=== PATIENT | female | born 1955 | race Caucasian/White ===

== ENCOUNTER → 2017-01-21 | Outpatient (CLI) | payer MEDICARE ==
--- NOTE | 2017-01-21 11:51 | WWHP ---
DATE OF SERVICE: 01/21/2017 CHIEF COMPLAINT: The patient is here for her routine gynecologic exam and mammogram. HPI: This is a 61-year-old, G2, P2 with an LMP of 2008. The patient denies any postmenopausal bleeding. She has been treated for lichen sclerosus. She states she has done fairly well with the steroid cream. She is wondering if there has been any dropping in the vaginal area since she examines herself done there relatively frequently. She feels like the urinary area can be irritated or a little more open than in the past. She is otherwise without complaints. PAST MEDICAL HISTORY: Sarcoidosis, chronic pain syndrome, hypothyroidism, lichen sclerosus of the vulva, osteopenia, diet-controlled hypoglycemia and emphysema. MEDICATIONS: 1. Levothyroxine 15 mcg daily. 2. Metoprolol half-tablet daily. 3. Paxil 5 mg daily. 4. Trazodone 25 mg at bedtime. 5. Atarax 25 mg at bedtime. 6. Symbicort 80/40 inhaler b.i.d. ALLERGIES: She believes she may be allergic to certain antibiotics. 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 FAMILY HISTORY: Father had an MS. Mother had hypertension, paternal aunt had breast cancer. Maternal uncle had prostate cancer and a different maternal uncle had bladder cancer. REVIEW OF SYSTEMS: She has lost about 10 pounds over the last year. She has been dieting. She denies respiratory, cardiac, or GI problems. PHYSICAL EXAM: Blood pressure 115/61, height 5 feet 2 inches. Weight 162 pounds. Temperature 97.0, pulse 72. This a well-developed, well-nourished white female who is alert and oriented x3, in no acute distress. HEENT is within normal limits. NECK: Supple without mass or thyromegaly. CHEST AND LUNGS: Clear to auscultation. HEART: Regular rate and rhythm. Breasts are without mass or discharge. The left breast is minimally tender. Axillary exam is negative for adenopathy. BACK: Negative for CVA tenderness. ABDOMEN: Soft, nontender, without palpable masses. PELVIC EXAM: External genitalia reveals some pallor on a labia minora that extends slightly to the labia majora and this is consistent with lichen sclerosus. This is stable from her previous examination. There is no excoriations or ulceration. Cervix and vagina reveal mild to moderate atrophy without lesions. There is no evidence of prolapse. The cervix appears moderately atrophic without lesions. The uterus is midposition, nongravid size and nontender. There are no palpable adnexal masses or tenderness. Rectovaginal exam is negative for mass. There is slight discomfort upon doing the rectal examination. This is negative for occult blood. EXTREMITIES: Nontender. IMPRESSION: 1. A 61-year-old menopausal female with lichen sclerosis controlled with Kenalog cream. 2. Multiple medical problems. 3. Moderate genital atrophy. PLAN: 1. Pap smear was deferred, since she had a normal one last year. 2. Self breast examination was discussed. 3. Mammogram will be done today. 4. The patient would like a trial of estrogen vaginal cream since she feels that the area especially around the urethral opening can get irritated at times. She will use Premarin vaginal cream 1 gm intravaginally twice weekly and she will apply a small amount to the urethral opening area. 5. She will follow up with Dr. Alvarez for her other medical problems. 6. She will return in one year.
--- NOTE | 2017-01-23 10:45 | MM ---
Reason for exam: screening (asymptomatic). Last mammogram was performed 1 year and 1 month ago. History: Patient is postmenopausal. Family history of breast cancer in maternal aunt at age 88. Right Mammotome Panel of the right breast, August 16, 2005. Physical Findings: A clinical breast exam by your physician is recommended on an annual basis and results should be correlated with mammographic findings. MG 3D Screening Mammo W/Cad Bilateral CC and MLO view(s) were taken. Prior study comparison: December 26, 2015, bilateral MG screening mammo w CAD. August 05, 2013, bilateral digital screening mammo w/CAD. There are scattered fibroglandular densities. Finding: There is an equal density (isodense), indistinct irregular mass in the middle position of the left breast seen on CC view, present on 2015. No significant changes in finding since December 26, 2015 and August 05, 2013. ASSESSMENT: Benign, BI-RAD 2 RECOMMENDATION: Routine screening mammogram of both breasts in 1 year.
== END | disposition home or self-care (01) ==
LOC: WWCWWP 09:58
PROVIDERS: ATTEND Obstetrics & Gynecology
DX: Z12.31 Encounter for screening mammogram for malignant neoplasm of breast (principal)
CPT/HCPCS: 77063; G0202

== ENCOUNTER → 2019-01-29 | Outpatient (CLI) | payer MEDICARE ==
--- NOTE | 2019-02-01 09:30 | MM ---
Reason for exam: screening (asymptomatic). Last mammogram was performed 2 years ago. History: Patient is postmenopausal. Family history of breast cancer in maternal aunt at age 88. Right Mammotome Panel of the right breast, August 16, 2005. Physical Findings: A clinical breast exam by your physician is recommended on an annual basis and results should be correlated with mammographic findings. MG Screening Mammo w CAD Bilateral CC and MLO view(s) were taken. Prior study comparison: January 21, 2017, bilateral MG 3d screening mammo w/cad. December 26, 2015, bilateral MG screening mammo w CAD. There are scattered fibroglandular densities. There is no discrete abnormality. No significant changes when compared with prior studies. ASSESSMENT: Negative, BI-RAD 1 RECOMMENDATION: Routine screening mammogram of both breasts in 1 year.
== END | disposition home or self-care (01) ==
LOC: RADMAMWWP 13:50
PROVIDERS: ATTEND Family Medicine
DX: Z12.31 Encounter for screening mammogram for malignant neoplasm of breast (principal)
CPT/HCPCS: 77067

== ENCOUNTER → 2019-03-26 | Outpatient (CLI) | payer MEDICARE ==
--- NOTE | 2019-03-26 12:17 | NM ---
EXAMINATION TYPE: NM hepatobiliary w EF DATE OF EXAM: 03/26/2019 COMPARISON: NONE HISTORY: Right upper quadrant pain TECHNIQUE: After the intravenous administration of 4.77 mCi Tc 99m Mebrofenin hepatobiliary scintigra phy is performed. Immediate images post injection. FINDINGS: There is satisfactory initial accumulation of tracer by the liver. The gallbladder is visualized wit hin 26 minutes. The small bowel activity is noted within 14 minutes. At one hour 8 ounces of oral e nsure plus is given to mimic CCK and gallbladder ejection fraction is calculated at 86%. IMPRESSION: Elevated gallbladder ejection fraction suggest hypercontractile state.
== END | disposition home or self-care (01) ==
LOC: RADNMMAIN 08:40
PROVIDERS: ATTEND Family Medicine
DX: R10.11 Right upper quadrant pain (principal)
CPT/HCPCS: 78226; A9537

== ENCOUNTER → 2019-05-25 | Outpatient (CLI) | payer MEDICARE ==
[2019-05-25 10:04] VITALS: BP 129/75; PULSE 68; RESP 18; TEMP 98; BMI 30.2
--- NOTE | 2019-05-25 11:27 | P.PN ---
Progress Note - Text Progress Note Date: 05/25/19 Chief Complaint: worsening vulvar itching with history of lichen sclerosis. HPI: this is a 63-year-old with an LMP of 2008. The patient has a history of lichen sclerosis documented with a vulvar biopsy in 2011. She has been treated for this with steroid creams for many years. She has seen a save all operator for this. She has been using different types of creams and ointments for this. Most recently she has been using fluocinonide 0.05% cream and Pimecrolimus 1% cream as prescribed by her save all operator. She continues to have worsening of her symptoms. She has pruritus that takes your breath away. She states this is mostly a problem at night. During the days she states she can distract herself were it is not so bothersome. She once took a allergy relief medication briefly and this did seem to help. She typically has not l ooked at the vulva herself, but recently looked and noticed a white spot on the inner aspect of the labia minora on the left side. She thinks this may have been where she had a biopsy done years ago and she is wondering if it is getting bigger. She previously used to motivate which she states made her not sleep well. ROS: she denies respiratory or cardiac problems. She has had some G.I. problems including gallbladder problems. PE: Blood pressure: 129/75, Height: 5'2", Weight: hundred 65 pounds, Temperature: 88.0, Pulse: 68. Pulse oximeter 96%. This is a well developed, well nourished, white female who is alert and orientedx3, in no acute distress. External genitalia reveals moderate pallor involving the labia minora and labia majora consistent with lichen sclerosis. There is a white scarred area approximately 3 x 4 mm on the inner left to labia minora which has been seeing on previous exams and was felt to be in the area of her previous biopsy. This is nontender there is moderate atrophy. Vagina: vagina reveals mild to moderate atrophy without lesions. There is no unusual discharge. Impression: 1. 63-year-old menopausal female with lichen sclerosis and worsening pruritus especially noticed at night. 2. Possible intolerance to Temovate which previously caused difficulty sleeping according to the patient. 3. Inner left labia minora scar from previous biopsy. Differential diagnosis will also include small benign appearing inclusion cyst. Plan: 1. She will use the creams as prescribed by her save all operator. 2. We will have a trial of Premarin vaginal cream which she will use a small amount (<1gram) to the labia minora and labia majora areas every other day. 3. [id number] Benadryl 25 mg PO Q HS. We will see if this gives relief from the itching and also possibly to see if it helps her to sleep. 4. She will return in 3 or 4 weeks for reevaluation. If she is not having improvement, consider referral or retrial of team motivate ointment. Time spent with the patient: 25 minutes
== END | disposition home or self-care (01) ==
LOC: WWCWWP 09:49
PROVIDERS: ATTEND Obstetrics & Gynecology
DX: Z53.9 Procedure and treatment not carried out, unspecified reason (principal)

== ENCOUNTER → 2020-05-10 | Outpatient (CLI) | payer MEDICARE ==
[2020-05-10 11:43] VITALS: BP 137/81; PULSE 82; RESP 18; TEMP 98.9
--- NOTE | 2020-05-10 12:41 | P.HPOB ---
History of Present Illness H&P Date: 05/10/20 Chief Complaint: The patient is here for her routine gynecologic exam. This is a 64-year-old with an LMP of 2007. The patient has a history of lichen sclerosus confirmed with vulvar biopsy in 2011. The patient has used many types of creams for this including Temovate cream, fluocinonide and Premarin cream. She was last seen for this about 1 year ago because the vulvar pruritus and discomfort was so bad. None of the creams or treatments seem to work. She states that during the months between April and June it became so severe that she felt like the vulva looked like raw meat. In June she started using bacitracin ointment and Polysporin ointment and alternated these 2 things each day. She states that since then the vulvar irritation and pruritus have dramatically improved and is now having minimal problems with the vulva. She has been experiencing a slight odor in the genital region and she believes this is at the urethral opening. She denies dysuria or significant urinary urgency. She has had slight urinary frequency. Review of Systems She has gained about 3 pounds over the past year. She states she had lost about 14 pounds with dietary changes but has gained it back after she stopped being ASCUS strict with her dietary changes. She denies respiratory, cardiac and G.I. problems. She denies maltreatment or problems with falling. : she denies any significant problems with urinary leakage. Past Medical History Past Medical History: COPD, Osteoarthritis (OA), Thyroid Disorder Additional Past Medical History / Comment(s): Sarcoidosis, chronic pain syndrome, arthritis, hypothyroidism, osteoporosis, diet-controlled hypoglycemia and emphysema. 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 Lichen sclerosis of the vulva diagnosed with biopsy. Cervical cone biopsy in her 40s. History of Any Multi-Drug Resistant Organisms: None Reported Past Surgical History: Breast Surgery, Orthopedic Surgery Additional Past Surgical History / Comment(s): Laminectomy, spinal fusion surgery, breast biopsy, conization of the cervix, and colonoscopy(2012) Past Psychological History: No Psychological Hx Reported Smoking Status: Never smoker Past Alcohol Use History: None Reported Past Drug Use History: None Reported Additional History: She has been since 1972 and is disabled. - Past Family History Father Family Medical History: Myocardial Infarction ([place]) Mother Family Medical History: Hypertension Additional Family Medical History / Comment(s): Maternal uncle had bladder cancer, another maternal uncle had prostate cancer, and a maternal aunt had breast cancer. Medications and Allergies Home Medications Medication Instructions Recorded Confirmed Type Levothyroxine Sodium [Synthroid] 50 mcg PO DAILY 05/25/19 05/10/20 History Budesonide/Formoterol Fumarate 1 puff INHALATION BID 05/10/20 05/10/20 History [Symbicort 80-4.5 Mcg Inhaler] Allergies Allergy/AdvReac Type Severity Reaction Status Date / Time ciprofloxacin [From Cipro] AdvReac Nausea & Unverified 05/10/20 11:29 Vomiting Exam Vital Signs Temp Pulse Resp BP Pulse Ox 05/10/20 11:32 98.9 F 82 18 137/81 95 Intake and Output 05/09/20 05/10/20 05/10/20 22:59 06:59 14:59 Other: Weight 76.204 kg Height 5 feet 1 inch, weight 168 pounds, BMI 31.7. This is a well-developed well-nourished white female who is alert and oriented times 3 in no acute distress. HEENT: Within normal limits. NECK: Supple without mass or thyromegaly. CHEST AND LUNGS: Clear to auscultation. HEART: Regular rate and rhythm. BREASTS: Are without mass or discharge. There is left central nipple inversion which the patient has had for several years after gaining weight. AXILLARY EXAM: Negative for adenopathy. BACK: Negative for CVA tenderness. ABDOMEN: Soft, nontender, without palpable masses. PELVIC EXAM: External genitalia reveals moderate atrophic changes with pallor of the labia minora bilaterally. There is no excoriation or significant erythema.. Cervix and vagina appear normal with moderate atrophy. The cervix is stenotic secondary to atrophy. There is no unusual discharge. There is no evidence of prolapse. The uterus is midposition, nongravid size and nontender. There are no palpable adnexal masses or tenderness. RECTAL EXAM: Rectovaginal exam is negative for mass or tenderness and is negative for occult blood. EXTREMITIES: Nontender. IMPRESSION: 1. 64-year-old menopausal female with mild lichen sclerosis mostly involving the labia minora which has been symptomatically controlled using Polysporin and bacitracin ointments. The patient did not have a good clinical response with steroid creams and estrogen creams. 2. Genital odor which the patient believes originates from the urethra. Possible urinary tract infection, bacterial vaginosis, or urinary odor from foods or medications. 3. Multiple medical problems. 4. History of osteoporosis. The patient is declining treatment or testing. PLAN: 1. Pap smear was performed. 2. Self breast awareness was discussed with the patient. 3. Screening mammogram is due and the order slip was given to the patient for this. 4. UA with C&S was obtained. 5. Affirm testing was obtained from the vagina to test for Shilpa, Gardnerella and Trichomonas. 6. She does get flu shots in the fall. 7. We had a long discussion regarding weight control. I have stressed the importance of regular meals and good nutrition. We have also discussed the importance of adequate fiber and exercise. 8. The patient is declining any treatment or testing for osteoporosis since she states she will not take the medication for osteoporosis. 9. She was advised to return in one year for her annual well woman exam.
[2020-05-10 15:14] LABS: Appearance,Urine Clear (Clear); Bacteria,Urine Rare /hpf; Bilirubin,Urine Negative (Negative); Blood,Urine Trace (Negative); Color,Urine Light Yellow; Glucose,Urine (UA) Negative (Negative); Ketones,Urine Negative (Negative); Leukocyte Esterase,Urine Negative (Negative); Mucus,Urine Rare /hpf; Nitrite,Urine Negative (Negative); Protein,Urine Negative (Negative); RBC,Urine 1 /hpf (0-5); Specific Gravity,Urine 1.011 (1.001-1.035); Squamous Epithelial Cell,Urine <1 /hpf (0-4); Urobilinogen,Urine <2.0 mg/dL (<2.0); WBC,Urine 1 /hpf (0-5)
[2020-05-11 05:15] LABS: Gardnerella Negative (Negative); Source Vagina; Trichomonas Negative (Negative)
--- NOTE | 2020-05-16 11:46 | P.PN ---
Progress Note - Text Progress Note Date: 05/16/20 OUTPATIENT FOLLOW-UP NOTE TEST(S)/RESULTS: Test results from 05/10/2020 include a firm testing negative for Shilpa, Gardnerella, and Trichomonas. Urinalysis showed trace blood and urine culture was positive for Procidencia rettgeri sensitive to Bactrim. METHOD OF NOTIFICATION: The patient was notified by phone. PATIENT COMMENTS: Her main symptom has been odor at the area of the urethra. She denies dysuria, fever or flank pain. DIAGNOSIS: Low-grade cystitis UTI. DISCUSSION: PLAN: Bactrim DS twice a day 3 days. Await Pap smear test result. The electronic prescription will be sent to my her pharmacy in [place].
--- NOTE | 2020-05-23 13:55 | P.PN ---
Progress Note - Text Progress Note Date: 05/23/20 OUTPATIENT FOLLOW-UP NOTE TEST(S)/RESULTS: Pap smear from 05/10/2020 was negative. METHOD OF NOTIFICATION: The patient was notified by phone. PATIENT COMMENTS: The patient was able to complete her prescription for Bactrim DS without any problems. DIAGNOSIS: Negative Pap smear. DISCUSSION: PLAN: She was advised to return in one year for her annual well woman exam.
== END | disposition home or self-care (01) ==
LOC: WWCWWP 11:18
PROVIDERS: ATTEND Obstetrics & Gynecology
DX: N90.4 Leukoplakia of vulva (principal); L29.2 Pruritus vulvae; R82.998 Other abnormal findings in urine; R35.0 Frequency of micturition
CPT/HCPCS: 81001; 87077; 87086; 87186; 87480; 87510; 87660

== ENCOUNTER → 2021-01-02 | Outpatient (CLI) | payer MEDICARE ==
--- NOTE | 2021-01-03 09:31 | MM ---
Reason for exam: screening (asymptomatic). Last mammogram was performed 1 year and 11 months ago. History: Patient is postmenopausal. Family history of breast cancer in maternal aunt at age 88. Right Mammotome Panel of the right breast, August 16, 2005. Physical Findings: A clinical breast exam by your physician is recommended on an annual basis and results should be correlated with mammographic findings. MG 3D Screening Mammo W/Cad Bilateral CC and MLO view(s) were taken. Prior study comparison: January 29, 2019, bilateral MG screening mammo w CAD. January 21, 2017, bilateral MG 3d screening mammo w/cad. There are scattered fibroglandular densities. There is no discrete abnormality. No significant changes when compared with prior studies. ASSESSMENT: Negative, BI-RAD 1 RECOMMENDATION: Routine screening mammogram of both breasts in 1 year.
== END | disposition home or self-care (01) ==
LOC: RADMAMWWP 11:18
PROVIDERS: ATTEND Obstetrics & Gynecology
DX: Z12.31 Encounter for screening mammogram for malignant neoplasm of breast (principal); Z78.0 Asymptomatic menopausal state
CPT/HCPCS: 77063; 77067

== ENCOUNTER 2021-03-18 13:59 | Observation (INO) | payer MEDICARE ==
[2021-03-18 14:37] LABS: Basophils # (A) 0.1 k/uL (0-0.2); Basophils % (A) 1 %; Eosinophils # (A) 0.1 k/uL (0-0.7); Eosinophils % (A) 1 %; HCT 42.8 % (34.0-46.0); Lymphocytes # (A) 1.2 k/uL (1.0-4.8); Lymphocytes % (A) 11 %; MCH 31.5 pg (25.0-35.0); MCV 90.1 fL (80.0-100.0); Mean Platelet Volume 7.4; Monocytes # (A) 0.4 k/uL (0-1.0); Monocytes % (A) 4 %; Neutrophils # (A) 8.7 k/uL (1.3-7.7); Neutrophils % (A) 83 %; Platelet Count 245 k/uL (150-450); RBC 4.75 m/uL (3.80-5.40); WBC 10.4 k/uL (3.8-10.6)
[2021-03-18 14:45] LABS: Partial Thromboplastin Time 23.5 sec (22.0-30.0); Prothrombin Time 10.3 sec (9.0-12.0)
[2021-03-18 14:46] LABS: Albumin 4.8 g/dL (3.5-5.0); Calcium 10.3 mg/dL (8.4-10.2); Magnesium 1.9 mg/dL (1.6-2.3); Potassium 4.3 mmol/L (3.5-5.1); Total Bilirubin 0.4 mg/dL (0.2-1.3); Total Protein 7.6 g/dL (6.3-8.2)
--- NOTE | 2021-03-18 14:50 | ED ---
Chest Pain HPI - General Chief Complaint: Chest Pain Stated Complaint: SOB, Chest discomfort Time Seen by Provider: 03/18/21 14:07 Source: patient, RN notes reviewed Mode of arrival: wheelchair Limitations: no limitations - History of Present Illness Initial Comments: This is a 65-year-old female with a history of hiatal hernia and thyroid disease sarcoidosis arthritis who presents with complaints of fatigue and exertional fatigue and dyspnea. She states is been going on for about 6 weeks does states she had a cold with 19 shot with the last one being in January 25. He states she's been having some fatigue going on for this time but over last 2 weeks is gotten worse with fatigue and some anterior chest discomfort. He discomfort is sometimes up to moderate in severity. She also has weakness and shortness of breath with it. No known overt cardiac disease. No cough no phlegm production fevers chills nausea vomiting sweats at this time. MD Complaint: chest pain - Related Data Home Medications Medication Instructions Recorded Confirmed Levothyroxine Sodium [Synthroid] 50 mcg PO DAILY 05/25/19 05/10/20 Budesonide/Formoterol Fumarate 1 puff INHALATION RT-BID 05/10/20 05/10/20 [Symbicort 80-4.5 Mcg Inhaler] Allergies Allergy/AdvReac Type Severity Reaction Status Date / Time ciprofloxacin [From Cipro] AdvReac Nausea & Verified 03/18/21 16:02 Vomiting Review of Systems ROS Statement: Those systems with pertinent positive or pertinent negative responses have been documented in the HPI. ROS Other: All systems not noted in ROS Statement are negative. EKG Findings - EKG Results: EKG: interpreted by EDITH, sinus rhythm (Sinus rhythm a 71 HI interval 164 QRS 82 QT since QTC 388/421 low-voltage no acute ST-T wave changes) Past Medical History Past Medical History: COPD, Osteoarthritis (OA), Thyroid Disorder Additional Past Medical History / Comment(s): Sarcoidosis, chronic pain syndrome, arthritis, hypothyroidism, osteoporosis, diet-controlled hypoglycemia and emphysema. 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 Lichen sclerosis of the vulva diagnosed with biopsy. Cervical cone biopsy in her 40s. History of Any Multi-Drug Resistant Organisms: None Reported Past Surgical History: Breast Surgery, Orthopedic Surgery Additional Past Surgical History / Comment(s): Laminectomy, spinal fusion surgery, breast biopsy, conization of the cervix, and colonoscopy(2012) Past Psychological History: No Psychological Hx Reported Smoking Status: Never smoker Past Alcohol Use History: None Reported Past Drug Use History: None Reported - Past Family History Father Family Medical History: Myocardial Infarction ([place]) Mother Family Medical History: Hypertension Additional Family Medical History / Comment(s): Maternal uncle had bladder cancer, another maternal uncle had prostate cancer, and a maternal aunt had breast cancer. General Exam - General Exam Comments Initial Comments: This is a well-developed well-nourished awake alert oriented 3 female Limitations: no limitations General appearance: alert, in no apparent distress Head exam: Present: atraumatic, normocephalic, normal inspection Eye exam: Present: normal appearance, PERRL, EOMI. Absent: scleral icterus, conjunctival injection, periorbital swelling ENT exam: Present: normal exam, mucous membranes moist Neck exam: Present: normal inspection, full ROM, other (No stridor JVD or bruits). Absent: tenderness, meningismus, lymphadenopathy Respiratory exam: Present: normal lung sounds bilaterally, chest wall tenderness (Some mild tenderness to palpation no step-off or crepitation). Absent: respiratory distress, wheezes, rales, rhonchi, stridor Cardiovascular Exam: Present: regular rate, normal rhythm, normal heart sounds. Absent: systolic murmur, diastolic murmur, rubs, gallop, clicks GI/Abdominal exam: Present: soft, normal bowel sounds. Absent: distended, tenderness, guarding, rebound, rigid Extremities exam: Present: normal inspection, full ROM, normal capillary refill. Absent: tenderness, pedal edema, joint swelling, calf tenderness Back exam: Present: normal inspection Neurological exam: Present: alert, oriented X3, CN II-XII intact Psychiatric exam: Present: normal affect, normal mood Skin exam: Present: warm, dry, intact, normal color. Absent: rash Course Vital Signs 03/18/21 03/18/21 14:01 14:41 Temperature 98.3 F Pulse Rate 82 71 Respiratory 16 18 Rate Blood Pressure 179/81 161/84 O2 Sat by Pulse 95 96 Oximetry Chest Pain MDM - MDM I did discuss the findings with the patient. Remarkable patient is asymptomatic at this time the patient does have evidence on symptoms of angina patient will be admitted with cardiology consultation the case is discussed with Dr. Constantino who is covering Dr. Alvarez Disposition Clinical Impression: Atypical chest pain, Unstable angina pectoris Disposition: ADMITTED IP TO THIS HOSP Condition: Stable Referrals: Naima Alvarez DO [REFERRING] - 1-2 days
--- NOTE | 2021-03-18 15:08 | XR ---
EXAMINATION TYPE: XR chest 2V DATE OF EXAM: 03/18/2021 COMPARISON: NONE HISTORY: Shortness of breath. TECHNIQUE: Frontal and lateral views of the chest are obtained. FINDINGS: There is no focal air space opacity, pleural effusion, or pneumothorax seen. The cardiac silhouette size is within normal limits. The osseous structures are intact. IMPRESSION: No acute cardiopulmonary process.
[2021-03-18] MEDS ORDERED: NITROGLYCERIN SL TABS 0.4 MG TAB SUBLINGUAL PRN (16:12)
[2021-03-18] MEDS ORDERED: traZODone HCL 50 MG TAB PO PRN (16:17)
[2021-03-18] MEDS ORDERED: ALBUTEROL NEBULIZED 2.5 MG/3 ML INHALATION PRN ×2 (16:17)
[2021-03-18] MEDS ORDERED: guaiFENesin 600 MG TABLET.ER PO PRN (16:17)
[2021-03-18] MEDS ORDERED: predniSONE 10 MG TAB PO PRN (16:17)
[2021-03-18] MEDS ORDERED: hydrOXYzine HCL 25 MG TAB PO PRN (16:17)
[2021-03-18] MEDS ORDERED: diphenhydrAMINE 25 MG CAP PO PRN (16:17)
[2021-03-18] MEDS ORDERED: tiZANidine 4 MG TAB PO PRN (16:17)
[2021-03-18] MEDS: SODIUM CHLORIDE 0.9% 1,000 ML IV SCH (17:48)
[2021-03-18] MEDS: SYMBICORT 80-4.5 MCG INHALER INHALATION SCH (20:23)
--- NOTE | 2021-03-18 21:59 | HP ---
HISTORY AND PHYSICAL DATE OF SERVICE: 03/18/2021. I am covering for Dr. Alvarez. CHIEF COMPLAINT: Multiple symptomatology including weakness, tiredness and also some shortness of breath and chest discomfort. HISTORY OF PRESENT ILLNESS: This 65-year-old woman with a past medical history of multiple medical issues, COPD, DJD, hypothyroidism, history of sarcoidosis, being followed by Dr. Alvarez in the outpatient setting, was not feeling well over the past several weeks. The patient complaining of tiredness and weak. Patient completed the 2nd course of Pfizer vaccine about a few weeks ago. The patient also complaining of some increasing fatigue for the last 6 weeks and some panting type of feeling also. The patient evaluated in the outpatient setting by Dr. Alvarez and adrenal insufficiency being checked into that but because of increased symptoms, patient came to [facility] and was admitted to the hospital for further evaluation and treatment. CBC was within normal limits. Otherwise, calcium is 10.3. D-dimer was negative. Troponins also negative at this time. The EKG which was done showed non-progression of the R-waves in the anterior leads. The chest x-ray which was reviewed personally by me showed no acute abnormality. There is no history of fever, rigors, chills at this time. The Covid test was negative. PAST MEDICAL HISTORY: History of COPD, history of DJD, hypothyroidism, history of sarcoidosis, chronic pain syndrome, history of DJD. MEDICATIONS: Home medications are trazodone, Zanaflex, prednisone, Atarax, Mucinex, Benadryl, Paxil, Toprol-XL. Synthroid, vitamin B12, Symbicort, albuterol nebulizer. ALLERGIES: CIPRO. FAMILY HISTORY: History of myocardial infarction in the family. SOCIAL HISTORY: No history of smoking. No history of alcohol. REVIEW OF SYSTEMS: ENT: No diminished vision. No diminished hearing. CARDIOVASCULAR system: As mentioned earlier. RESPIRATORY: As mentioned earlier. GI no nausea or vomiting. no dysuria. NERVOUS SYSTEM: As mentioned earlier. ALLERGY/IMMUNOLOGY: No asthma or hayfever. MUSCULOSKELETAL as mentioned earlier. HEMATOLOGY/ONCOLOGY: No history of anemia. ENDOCRINE: As mentioned earlier. CONSTITUTIONAL: As mentioned earlier. DERMATOLOGY: Negative. RHEUMATOLOGY negative. PSYCHIATRY as mentioned earlier. PHYSICAL EXAM: Patient is alert, oriented x3. Pulse 71. Blood pressure 128/74. Respirations 18, temperature 98.4, pulse ox 98% on room air. HEENT: Conjunctivae normal. Oral mucosa moist. NECK is no jugular venous distention. No carotid bruit. No lymph node enlargement. CARDIOVASCULAR system: S1, S2, muffled. RESPIRATIONS: Breath sounds diminished in the bases. No rhonchi. No crackles. ABDOMEN: Soft, nontender. No mass palpable. LEGS: No edema. No swelling. NERVOUS SYSTEM: Higher functions as mentioned earlier. Moves all 4 limbs. No focal deficits. LYMPHATICS: No lymph nodes palpable in the neck, axillae or groin. SKIN no ulcer, rash or bleeding. JOINTS: No active deforming arthropathy. LABS: This time CBC within normal limits. D-dimer is normal. Sodium 139, potassium 4.3, calcium is 10.3. ASSESSMENT: 1. Chest discomfort for evaluation, rule out coronary artery disease. 2. Generalized weakness and fatigue for evaluation, rule out adrenal insufficiency. 3. Hypercalcemia. 4. Increased random glucose. 5. History of chronic obstructive pulmonary disease. 6. History of degenerative joint disease. 7. Hypothyroidism. 8. History of sarcoidosis. 9. History of chronic pain syndrome. 10.History of degenerative joint disease. 11.History of osteoporosis. 12.Diet-controlled hyperglycemia. 13.History of emphysema. 14.History of lichen sclerosis. 15.History of laminectomy. RECOMMENDATIONS AND DISCUSSION: This 65-year-old woman who presented with multiple medical issues, we will monitor the patient closely, continue the current medications, management and symptomatic treatment. Otherwise cardiology consultation. I would also recommend an 8:00 am serum cortisol and a CRP level. I would recommend a CT angio of the chest and monitor blood pressure closely. Prognosis guarded because of multiple complex medical issues. A copy of this dictation is being forwarded to Dr. Kael Alvarez who is the primary physician. MMODL / IJN: [id number] /
[2021-03-19 02:37] VITALS: RESP 16
[2021-03-19] MEDS ORDERED: methylPREDNISolone SOD SUCCI 125 MG/2 ML VIAL IV ONE (05:00)
[2021-03-19] MEDS ORDERED: LEVOTHYROXINE 50 MCG TAB PO SCH (06:30)
[2021-03-19 07:01] VITALS: BP 100/62; PULSE 60; TEMP 98.3
[2021-03-19] MEDS: SYMBICORT 80-4.5 MCG INHALER INHALATION SCH (08:00)
--- NOTE | 2021-03-19 08:44 | P.CRDCN ---
History of Present Illness History of present illness: HISTORY OF PRESENTING ILLNESS This is a pleasant 65-year-old with past medical history significant for COPD, pulmonary sarcoidosis, hypothyroidism, strong family history of coronary artery disease. She presents to the hospital secondary to episodes of increased pressure mainly with exertion or last 3-4 days. She states she got her Pfizer vaccinations 6-8 weeks ago and has been feeling some fatigue. Fatigue mainly is feeling like she does not want to get up and do things and more tired throughout the day. More recently however in the last 3-4 days she has noticed increased episodes of chest tightness, pressure, feeling like there is not enough room which usually occurs with exertion. No associated nausea, diaphoresis or shortness breath. She believes she has had a stress test approximately 10 years ago. She does have a strong family history of father with coronary artery disease, as well as some concern of possible aneurysm. Chest x-ray performed 03/18/2021 shows no acute process. He shows normal sinus rhythm, low voltage, normal axis, no significant ST or T-wave abnormalities. Calcium 10.3, BUN 20, creatinine 0.8, troponin negative 3, lopez virus not detected. REVIEW OF SYSTEMS At the time of my exam: CONSTITUTIONAL: Denies fever or chills. CARDIOVASCULAR: +chest pain, no shortness of breath, orthopnea, PND or palpitations. RESPIRATORY: Denies cough. GASTROINTESTINAL: Denies abdominal pain, diarrhea, constipation, nausea or vomiting. MUSCULOSKELETAL: Denies myalgias. NEUROLOGIC: Denies numbness, tingling or weakness. ENDOCRINE: Denies fatigue, weight change, polydipsia or polyurina. GENITOURINARY: Denies burning, hematuria or urgency with micturation. HEMATOLOGIC: Denies history of anemia or bleeding. PHYSICAL EXAMINATION Vital signs reviewed. CONSTITUTIONAL: No apparent distress. HEENT: Head is normocephalic. Pupils are equal, round. Sclerae anicteric. Mucous membranes of the mouth are moist. No JVD. No carotid bruit. CHEST EXAMINATION: Lungs are clear to auscultation. No chest wall tenderness is noted on palpation or with deep breathing. HEART EXAMINATION: Regular rate and rhythm. S1, S2 heard. No murmurs, gallops or rub. ABDOMEN: Soft, nontender. Positive bowel sounds. EXTREMITIES: 2+ peripheral pulses, no lower extremity edema and no calf tenderness. NEUROLOGIC EXAMINATION: Patient is awake, alert and oriented x3. ASSESSMENT 1. Atypical chest pain however some association with exertion. Rule out angina. Check echocardiogram and stress echo. Troponins normal 3. 2. History of pulmonary sarcoidosis 3. New-onset of fatigue for last 6-8 weeks. Patient being worked up for possible adrenal insufficiency versus depression versus reaction to COVID-19 vaccination 4. Hypertension 5. Family history of coronary artery disease, aneurysm PLAN Symptoms are not typical however some association with exertion. Some vague feeling of pressure, tightness and feeling like there is a fullness in her chest which is worse with exertion. Troponins normal 3 and EKG unrevealing. Check a echocardiogram and stress echo. If both are normal, patient may be discharged home with cardiology standpoint. Past Medical History Past Medical History: COPD, Osteoarthritis (OA), Thyroid Disorder Additional Past Medical History / Comment(s): Sarcoidosis, chronic pain syndrome, arthritis, hypothyroidism, osteoporosis, diet-controlled hypoglycemia and emphysema. PAST DONOR FLOOR TECHNICIAN HISTORY: She has no history of STDs. Lichen sclerosis of the vulva diagnosed with biopsy. Cervical cone biopsy in her 40s. History of Any Multi-Drug Resistant Organisms: None Reported Past Surgical History: Breast Surgery, Orthopedic Surgery Additional Past Surgical History / Comment(s): Laminectomy, spinal fusion doan rgery, breast biopsy, conization of the cervix, and colonoscopy(2012) Past Anesthesia/Blood Transfusion Reactions: No Reported Reaction Past Psychological History: No Psychological Hx Reported Smoking Status: Never smoker Past Alcohol Use History: None Reported Past Drug Use History: None Reported - Past Family History Father Family Medical History: Myocardial Infarction ([place]) Mother Family Medical History: Hypertension Additional Family Medical History / Comment(s): Maternal uncle had bladder cancer, another maternal uncle had prostate cancer, and a maternal aunt had breast cancer. Medications and Allergies Home Medications Medication Instructions Recorded Confirmed Type Levothyroxine Sodium [Synthroid] 50 mcg PO DAILY 05/25/19 03/18/21 History Budesonide/Formoterol Fumarate 1 puff INHALATION RT-BID 05/10/20 03/18/21 History [Symbicort 80-4.5 Mcg Inhaler] Albuterol Nebulized [Ventolin 2.5 mg INHALATION RT-BID PRN 03/18/21 03/18/21 History Nebulized] Albuterol Sulfate [Proair Hfa] 1 puff INHALATION RT-Q4H PRN 03/18/21 03/18/21 History Cyanocobalamin [Vitamin B-12 1,000 mcg SQ Q14D 03/18/21 03/18/21 History Injection] Metoprolol Succinate [Toprol XL] 12.5 mg PO DAILY 03/18/21 03/18/21 History PARoxetine [Paxil] 5 mg PO DAILY 03/18/21 03/18/21 History diphenhydrAMINE [Benadryl] 25 mg PO DAILY PRN 03/18/21 03/18/21 History guaiFENesin [Mucinex] 600 mg PO BID PRN 03/18/21 03/18/21 History hydrOXYzine HCL [Atarax] 25 mg PO Q8H PRN 03/18/21 03/18/21 History predniSONE 10 mg PO DAILY PRN 03/18/21 03/18/21 History tiZANidine HCL [Zanaflex] 4 mg PO BID PRN 03/18/21 03/18/21 History traZODone HCL 50 mg PO HS PRN 03/18/21 03/18/21 History Allergies Allergy/AdvReac Type Severity Reaction Status Date / Time ciprofloxacin [From Cipro] AdvReac Nausea & Verified 03/18/21 16:02 Vomiting Physical Exam Vitals: Vital Signs Temp Pulse Pulse Resp BP BP Pulse Ox 03/19/21 07:00 98.3 F 60 16 100/62 93 L 03/19/21 02:00 98.0 F 66 16 98/54 93 L 03/18/21 20:00 98.1 F 67 18 122/72 95 03/18/21 18:12 71 18 03/18/21 17:26 98.4 F 71 18 128/74 96 03/18/21 16:09 64 18 136/72 95 03/18/21 14:41 71 18 161/84 96 03/18/21 14:01 98.3 F 82 16 179/81 95 Intake and Output 03/18/21 03/19/21 03/19/21 22:59 06:59 14:59 Other: Voiding Method Toilet # Voids 2 2 Weight 72.575 kg Results 03/18/21 14:29 03/18/21 14:29 Cardiac Enzymes 03/18/21 03/18/21 03/18/21 Range/Units 14:29 14:29 17:19 AST 29 (14-36) U/L Troponin I <0.012 <0.012 (0.000-0.034) ng/mL 03/18/21 Range/Units 22:40 AST (14-36) U/L Troponin I <0.012 (0.000-0.034) ng/mL Coagulation 03/18/21 Range/Units 14:29 PT 10.3 (9.0-12.0) sec APTT 23.5 (22.0-30.0) sec CBC 03/18/21 Range/Units 14:29 WBC 10.4 (3.8-10.6) k/uL RBC 4.75 (3.80-5.40) m/uL Hgb 15.0 (11.4-16.0) gm/dL Hct 42.8 (34.0-46.0) % Plt Count 245 (150-450) k/uL Comprehensive Metabolic Panel 03/18/21 Range/Units 14:29 Sodium 139 (137-145) mmol/L Potassium 4.3 (3.5-5.1) mmol/L Chloride 105 (98-107) mmol/L Carbon Dioxide 24 (22-30) mmol/L BUN 20 H (7-17) mg/dL Creatinine 0.83 (0.52-1.04) mg/dL Glucose 118 H (74-99) mg/dL Calcium 10.3 H (8.4-10.2) mg/dL AST 29 (14-36) U/L ALT 26 (4-34) U/L Alkaline Phosphatase 79 (38-126) U/L Total Protein 7.6 (6.3-8.2) g/dL Albumin 4.8 (3.5-5.0) g/dL Current Medications Generic Name Dose Route Start Last Admin Trade Name Freq PRN Reason Stop Dose Admin Albuterol Sulfate 2.5 mg 03/18/21 16:17 Albuterol Nebulized 2.5 Mg/3 Ml INHALATION RT-Q4H PRN Shortness Of Breath Aspirin 325 mg 03/19/21 09:00 03/19/21 08:00 Aspirin 325 Mg Tab PO 325 mg DAILY EMILY Administration Budesonide/Formoterol Fumarate 1 puff 03/18/21 20:00 03/19/21 08:00 Symbicort 80-4.5 Mcg Inhaler INHALATION 1 puff RT-BID EMILY Administration Cyanocobalamin 1,000 mcg 03/26/21 09:00 Cyanocobalamin 1,000 Mcg/Ml 1 Ml Vial SQ Q14D EMILY Diphenhydramine HCl 25 mg 03/18/21 16:17 Diphenhydramine 25 Mg Cap PO DAILY PRN Allergy Symptoms Diphenhydramine HCl 50 mg 03/19/21 10:30 Diphenhydramine 50 Mg/Ml 1 Ml Vial IVP 03/19/21 10:31 ONCE ONE Famotidine 20 mg 03/19/21 10:30 Famotidine 20 Mg/2 Ml Vial IV 03/19/21 10:31 ONCE ONE Guaifenesin 600 mg 03/18/21 16:17 Guaifenesin 600 Mg Tablet.Er PO BID PRN Congestion Hydroxyzine HCl 25 mg 03/18/21 16:17 03/18/21 23:10 Hydroxyzine Hcl 25 Mg Tab PO 25 mg Q8H PRN Administration Itching Sodium Chloride 1,000 mls @ 20 mls/hr 03/18/21 16:15 03/18/21 17:48 Saline 0.9% IV Not Given .Q24H EMILY Levothyroxine Sodium 50 mcg 03/19/21 06:30 03/19/21 05:11 Levothyroxine 50 Mcg Tab PO 50 mcg DAILY@0630 EMILY Administration Metoprolol Succinate 12.5 mg 03/19/21 09:00 03/19/21 08:00 Metoprolol Succinate (Er) 25 Mg Tab.Er.24h PO 12.5 mg DAILY EMILY Administration Nitroglycerin 0.4 mg 03/18/21 16:12 Nitroglycerin Sl Tabs 0.4 Mg Tab SUBLINGUAL Q5M PRN Chest Pain Paroxetine HCl 5 mg 03/19/21 09:00 03/19/21 08:00 Paroxetine 10 Mg Tab PO 5 mg DAILY EMILY Administration Prednisone 10 mg 03/18/21 16:17 Prednisone 10 Mg Tab PO DAILY PRN ASTHMA Tizanidine HCl 4 mg 03/18/21 16:17 03/18/21 23:10 Tizanidine 4 Mg Tab PO 2 mg BID PRN Administration Muscle Spasm Trazodone HCl 50 mg 03/18/21 16:17 03/18/21 22:22 Trazodone Hcl 50 Mg Tab PO 50 mg HS PRN Administration Insomnia Intake and Output 03/18/21 03/19/21 03/19/21 22:59 06:59 14:59 Other: Voiding Method Toilet # Voids 2 2 Weight 72.575 kg 03/18/21 14:29 03/18/21 14:29
[2021-03-19] MEDS ORDERED: METOPROLOL SUCCINATE (ER) 25 MG TAB.ER.24H PO SCH (09:00)
[2021-03-19] MEDS ORDERED: PARoxetine 10 MG TAB PO SCH (09:00)
[2021-03-19] MEDS ORDERED: ASPIRIN 325 MG TAB PO SCH (09:00)
[2021-03-19 09:28] LABS: Basophils # (A) 0.07 X 10*3/uL (0.00-0.10); Eosinophils # (A) 0.11 X 10*3/uL (0.04-0.35); Eosinophils % (A) 1.6 %; HCT 40.4 % (37.2-46.3); HGB 13.7 g/dL (12.0-15.0); Lymphocytes # (A) 2.55 X 10*3/uL (0.90-5.00); Lymphocytes % (A) 37.5 %; MCH 31.4 pg (27.0-32.0); MCHC 33.9 g/dL (32.0-37.0); MCV 92.4 fL (80.0-97.0); Mean Platelet Volume 10.4 fL (9.5-12.2); Monocytes # (A) 0.63 X 10*3/uL (0.20-1.00); Monocytes % (A) 9.3 %; Neutrophils # (A) 3.43 X 10*3/uL (1.80-7.70); Neutrophils % (A) 50.5 %; Platelet Count 239 X 10*3/uL (140-440); RBC 4.37 X 10*6/uL (4.10-5.20); RDW 12.2 % (11.5-14.5)
[2021-03-19] MEDS ORDERED: diphenhydrAMINE 50 MG/ML 1 ML VIAL IVP ONE (10:30)
[2021-03-19] MEDS ORDERED: FAMOTIDINE 20 MG/2 ML VIAL IV ONE (10:30)
[2021-03-19 11:42] LABS: BUN/Creat Ratio 23.75 Ratio (12.00-20.00); C Reactive Protein <0.4 mg/dL (0.0-0.8); Calcium 9.4 mg/dL (8.7-10.3); Carbon Dioxide 29.8 mmol/L (21.6-31.8); Chloride 105 mmol/L (96-109); Cholesterol 260 mg/dL (0-200); Glucose 90 mg/dL (70-110); LDL Cholesterol,Calculated 179.2 mg/dL (0.0-131.0); Non-African American GFR(CKD) 76.8 (60.0-200.0); Potassium 4.1 mmol/L (3.5-5.5); Sodium 139 mmol/L (135-145)
[2021-03-19] MEDS: SODIUM CHLORIDE 0.9% 1,000 ML IV SCH (12:01)
--- NOTE | 2021-03-19 12:36 | P.STRESS ---
- Stress Test Note Stress Test Results/Findings: Exam Performed: Exam Date: Reason for Exam: Height: 5 ft 1 in Weight: 72.575 kg Protocol: Stage: Duration of Exercise: Resting Heart Rate: Resting Blood Pressure: Maximum Achieved Heart Rate: Maximum Achieved Blood Pressure: 85% PMHR: 100% PMHR: METS: Technologist Comment: Stress Test Results/Findings: Patient underwent exercise stress echo with a Kem protocol treadmill stress test. Patient exercised into Stage 1 for a total of 3 minutes. Patient's maximum heart rate was 143 which represented 93% age-predicted maximum heart rate. Stress EKG portion: At baseline patient's EKG showed Normal sinus rhythm, normal axis, minimal went to [address] depressions in the inferior lateral leads, minimal ST elevation in aVR. With stress there was mild accentuation of baseline EKG abnormalities with up to 0.[address] depressions in the inferior lateral leads. Stress echo portion: 2-D echocardiogram was performed in the parasternal long, personal short, apical 2 and apical four-chamber views at rest, peak exercise and in recovery. At baseline, echocardiogram showed left ventricular ejection fraction 55% without wall motion abnormalities. With peak exercise, echocardiogram shows improvement in left ventricular ejection fraction, increase contractility, decrease in left ventricular dimension without wall motion abnormalities consistent with a normal response to exercise. Conclusions: 1. Normal EKG and echo response to exercise without evidence of inducible ischemia. 2. Poor exercise capacity. 3. Normal EF 55%.
--- NOTE | 2021-03-19 13:00 | ECHOF ---
Referral Reason:chf MEASUREMENTS -------- HEIGHT: 154.9 cm WEIGHT: 72.6 kg BP: RVIDd: 2.8 cm (< 3.3) IVSd: 0.9 cm (0.6 - 1.1) LVIDd: 3.9 cm (3.9 - 5.3) LVPWd: 0.8 cm (0.6 - 1.1) IVSs: 1.4 cm LVIDs: 2.7 cm LVPWs: 1.6 cm Ao Diam: 3.4 cm (2.0 - 3.7) AV Cusp: 2.1 cm (1.5 - 2.6) LA Diam: 2.8 cm (2.7 - 3.8) MV EXCURSION: 7.289 mm (> 18.000) MV EF SLOPE: 56 mm/s (70 - 150) EPSS: 0.9 cm MV E Danny: 1.06 m/s MV DecT: 181 ms MV A Danny: 0.95 m/s MV E/A Ratio: 1.11 RAP: 5.00 mmHg RVSP: 8.95 mmHg FINDINGS -------- This was a technically difficult study with suboptimal views. The left ventricular size is normal. Left ventricular wall thickness is normal. Overall left vent ricular systolic function is normal with, an EF between 55 - 60 %. The right ventricle is normal in size. The left atrial size is normal. The right atrial size is normal. xx ml of Lumason was utilized for enhancement of images. The aortic valve is trileaflet and appears structurally normal. The mitral valve was not well visualized. There is trace mitral regurgitation. The tricuspid valve was not well visualized. Trace tricuspid regurgitation present. Right ventric ular systolic pressure is normal at < 35 mmHg. The pulmonic valve was not well visualized. The aortic root size is normal. IVC Not well visulized. There is no pericardial effusion. CONCLUSIONS -------- 1. The left ventricular size is normal. 2. Left ventricular wall thickness is normal. 3. Overall left ventricular systolic function is normal with, an EF between 55 - 60 %. 4. There is trace mitral regurgitation. 5. Trace tricuspid regurgitation present. 6. There is no pericardial effusion. VIRTUAL RECRUITER: Christi Hart RDCS
--- NOTE | 2021-03-19 13:21 | CT ---
EXAMINATION TYPE: CT angio chest DATE OF EXAM: 03/19/2021 COMPARISON: Chest x-ray 03/18/2021 HISTORY: Chest pain. History of sarcoid. CT DLP: 511 mGycm Automated exposure control for dose reduction was used. CONTRAST: CTA scan of the thorax is performed with IV Contrast, patient injected with 75ml mL of Isovue 370, pu lmonary embolism protocol. MIP images are created and reviewed. 3D reconstructed images are created on an independent workstation and reviewed. FINDINGS: LUNGS: The lungs are showing a bandlike area of probable atelectasis or scarring at the right lung ba se, there is no concerning parenchymal mass or nodule identified, nodular density along the fissure, axial image 73 is likely of no consequence, benign with smooth margins measuring approximately 6 mm. There is no pleural effusion or pneumothorax seen. The tracheobronchial tree is patent. There is s ome apical pleural thickening. Focus of cylindrical bronchiectasis present in the left upper lobe, so me local scarring is suspected, axial images #66 through 750, some calcified granuloma suspected in t he left upper lobe at this level. AORTA: No additional significant abnormality is seen. MEDIASTINUM: There is satisfactory enhancement of the pulmonary artery and its branches, there is no CT evidence for pulmonary embolism. There are no greater than 1 cm hilar or mediastinal lymph nodes. No pericardial effusion is seen. OTHER: Low dense foci within the liver likely represent cysts. Calyceal diverticulum suspected at th e upper pole the left kidney containing calcifications measuring approximately 2.7 cm in greatest AP dimension. IMPRESSION: NO EVIDENT PULMONARY EMBOLISM. ADDITIONAL FINDINGS ABOVE.
[2021-03-26] MEDS ORDERED: CYANOCOBALAMIN 1,000 MCG/ML 1 ML VIAL SQ SCH (09:00)
== END 2021-03-19 13:50 | disposition home or self-care (01) ==
LOC: EC 13:59 → 6NMEDSUR 16:12
PROVIDERS: ADMIT Family Medicine; ATTEND Family Medicine
DX: R07.89 Other chest pain (principal); R53.1 Weakness; E83.52 Hypercalcemia; J43.9 Emphysema, unspecified; Z20.822 Contact with and (suspected) exposure to COVID-19; M19.90 Unspecified osteoarthritis, unspecified site; M81.0 Age-related osteoporosis without current pathological fracture; E03.9 Hypothyroidism, unspecified; D86.9 Sarcoidosis, unspecified; G89.4 Chronic pain syndrome; L28.0 Lichen simplex chronicus; K44.9 Diaphragmatic hernia without obstruction or gangrene; D86.0 Sarcoidosis of lung; I10 Essential (primary) hypertension; Z79.51 Long term (current) use of inhaled steroids; Z79.890 Hormone replacement therapy; Z79.899 Other long term (current) drug therapy; Z88.1 Allergy status to other antibiotic agents; Z98.1 Arthrodesis status; Z98.890 Other specified postprocedural states; Z82.49 Family history of ischemic heart disease and other diseases of the circulatory system; Z80.52 Family history of malignant neoplasm of bladder; Z80.3 Family history of malignant neoplasm of breast
CPT/HCPCS: 96375; 96374; 99285; 36415; 94640 ×2; 93005; 85379; 80061; 80053; 80048; 82533; 83690; 83735; 84484; 85025 ×2; 85610; 85730; 86140; 87635; 71046; 71275; G0378 ×2; C8929; C8930; J1200; J2930; Q9950; Q9967; 93306; 93351

== ENCOUNTER 2021-03-24 | Emergency (ER) | payer MEDICARE | END 2021-03-24 14:42 | disposition home or self-care (01) | CPT/HCPCS: 36415; 76705; 80053; 81001; 83605; 83690; 85025; 85610; 85730; 96360; 99284 ==

== ENCOUNTER 2021-04-04 07:49 | Day surgery (SDC) | payer MEDICARE ==
[2021-03-30 12:14] VITALS: BMI 29.2
[~2021-04-04 07:49] MED LIST: ACETAMINOPHEN TAB 500 MG TAB PO PRN; DEXAMETHASONE SOD PHOSPHATE 4 MG/ML 1 ML VIAL IV ONE; HEPARIN SODIUM,PORCINE/PF 5,000 UNIT/0.5 ML SYRINGE SQ PRN; LACTATED RINGERS 1,000 ML IV SCH; LIDOCAINE 1% (10MG/ML) FOR IV START INTRADERMA PRN; ONDANSETRON 4 MG/2 ML VIAL IVP ONE
--- NOTE | 2021-04-04 08:01 | P.GSHP ---
History of Present Illness H&P Date: 04/04/21 Chief Complaint: Right upper quadrant pain This is a 65-year-old female who presents today for laparoscopic cholecystectomy. Patient is a complete right quadrant pain. Her recent HIDA scan shows an abnormal ejection fraction consistent with chronic cholecystitis Past Medical History Past Medical History: COPD, Osteoarthritis (OA), Thyroid Disorder Additional Past Medical History / Comment(s): Sarcoidosis, chronic pain syndrome, arthritis, hypothyroidism, osteoporosis, diet-controlled hypoglycemia and emphysema. PAST TRIAL ATTORNEY HISTORY: She has no history of STDs. Lichen sclerosis of the vulva diagnosed with biopsy. Cervical cone biopsy in her 40s. History of Any Multi-Drug Resistant Organisms: None Reported Past Surgical History: Breast Surgery, Orthopedic Surgery Additional Past Surgical History / Comment(s): Laminectomy, spinal fusion surgery, breast biopsy, conization of the cervix, and colonoscopy(2012) Past Anesthesia/Blood Transfusion Reactions: No Reported Reaction Smoking Status: Never smoker - Past Family History Father Family Medical History: Myocardial Infarction ([place]) Mother Family Medical History: Hypertension Additional Family Medical History / Comment(s): Maternal uncle had bladder cancer, another maternal uncle had prostate cancer, and a maternal aunt had breast cancer. Medications and Allergies Home Medications Medication Instructions Recorded Confirmed Type Levothyroxine Sodium [Synthroid] 50 mcg PO DAILY 05/25/19 03/30/21 History Budesonide/Formoterol Fumarate 1 puff INHALATION RT-BID 05/10/20 03/30/21 History [Symbicort 80-4.5 Mcg Inhaler] Albuterol Nebulized [Ventolin 2.5 mg INHALATION RT-BID PRN 03/18/21 03/30/21 History Nebulized] Albuterol Sulfate [Proair Hfa] 1 puff INHALATION RT-Q4H PRN 03/18/21 03/30/21 History Cyanocobalamin [Vitamin B-12 1,000 mcg SQ Q14D 03/18/21 03/30/21 History Injection] Metoprolol Succinate [Toprol XL] 25 mg PO DAILY 03/18/21 03/30/21 History PARoxetine [Paxil] 5 mg PO DAILY 03/18/21 03/30/21 History diphenhydrAMINE [Benadryl] 25 mg PO DAILY PRN 03/18/21 03/30/21 History guaiFENesin [Mucinex] 600 mg PO BID PRN 03/18/21 03/30/21 History hydrOXYzine HCL [Atarax] 25 mg PO Q8H PRN 03/18/21 03/30/21 History predniSONE 10 mg PO DAILY PRN 03/18/21 03/30/21 History tiZANidine HCL [Zanaflex] 4 mg PO BID PRN 03/18/21 03/30/21 History traZODone HCL 50 mg PO HS PRN 03/18/21 03/30/21 History Allergies Allergy/AdvReac Type Severity Reaction Status Date / Time Latex, Natural Rubber Allergy Unknown Verified 03/30/21 12:09 ciprofloxacin [From Cipro] AdvReac Nausea & Verified 03/30/21 11:59 Vomiting Surgical - Exam - General well developed, well nourished, no distress - Eyes PERRL - ENT normal pinna - Neck no masses - Respiratory normal expansion - Cardiovascular Rhythm: regular - Abdomen Abdomen: soft, non tender Assessment and Plan Assessment: Chronic cholecystitis. We'll perform laparoscopic cholecystectomy
[2021-04-04 08:51] LABS: Glucose,Whole Blood 108 mg/dL (75-99)
[2021-04-04] MEDS ORDERED: DEXAMETHASONE SOD PHOSPHATE 10 MG/ML 1 ML VIAL ONE (09:19)
[2021-04-04] MEDS ORDERED: KETOROLAC 15 MG/ML 1 ML VIAL ONE (09:19)
[2021-04-04] MEDS ORDERED: PROPOFOL 10 MG/ML 20 ML VIAL IV ONE (09:19)
[2021-04-04] MEDS ORDERED: ROCURONIUM 10 MG/ML (5 ML VIAL) IV ONE (09:19)
[2021-04-04] MEDS ORDERED: MIDAZOLAM 2 MG/2 ML VIAL ONE (09:19)
[2021-04-04] MEDS ORDERED: SUCCINYLCHOLINE CHLORIDE 100 MG/5 ML SYR IV ONE (09:19)
[2021-04-04] MEDS ORDERED: fentaNYL (PF) 50 MCG/ML 2 ML AMP ONE (09:19)
[2021-04-04] MEDS ORDERED: LIDOCAINE 1% INJ 10MG/ML (20 ML MDV) ONE (09:19)
[2021-04-04] MEDS ORDERED: NEOSTIGMINE 1 MG/ML 10 ML VIAL ONE (09:19)
[2021-04-04] MEDS ORDERED: GLYCOPYRROLATE 0.2 MG/ML 2 ML VIAL ONE (09:19)
[2021-04-04] MEDS ORDERED: BUPIVACAINE (PF) 0.25% 30 ML VIAL SQ ONE (09:39)
[2021-04-04 10:14] VITALS: TEMP 98
[2021-04-04] MEDS ORDERED: SODIUM CHLORIDE 0.9% 1,000 ML IV ONE (10:50)
--- NOTE | 2021-04-04 11:07 | P.OP ---
Date of Procedure: 04/04/21 Preoperative Diagnosis: Cholecystitis Postoperative Diagnosis: Cholecystitis Procedure(s) Performed: Laparoscopic cholecystectomy Anesthesia: ABDIRAHMAN Surgeon: Cornelius Pinto Estimated Blood Loss (ml): 5 Pathology: other (Gallbladder) Condition: stable Disposition: PACU Description of Procedure: The patient was placed on the operating table. The patient received a general endotracheal tube anesthesia. The patients abdomen was prepped and draped in the usual sterile fashion. Through an infraumbilical stab incision, the fascia of the anterior abdominal wall was grasped with a pair of Kochers and then the Veress needle was placed in the peritoneal cavity. Position of the Veress needle was confirmed with positive drop test. The abdomen was then insufflated. After adequate insufflation, the 10 mm trocar was placed in the peritoneal cavity. Following this the laparoscope was placed in the peritoneal cavity. The patient was placed in the head-up, right side up position and then a 5 mm trocar was placed in the right lateral and right subcostal position under direct visualization. A 8 mm trocar was placed in the epigastric position. The gallbladder was grasped in the fundus and infundibulum. Traction on the gallbladder was placed in the lateral and the cephalad positions. The triangle of Calot was visualized.. The cystic duct was bluntly dissected until the union of the cystic duct and common bile duct was seen. A critical view of safety was achieved. The cystic duct was then divided and sealed with the Harmonic scissors. A PDS Endoloop was then placed throughout the cystic duct stump. The cystic artery divided and sealed with the Harmonic scissors. The gallbladder was then removed from the liver bed using Harmonic scissors. The gallbladder was then extracted through the epigastric port site. Operative field was checked for any bleeding spots and Harmonic scissors was used to coagulate the liver bed. The abdomen was irrigated. The trocars were removed. The skin was closed using interrupted 3-0 Vicryl suture. Dermabond dressing were applied. The patient tolerated the procedure well.
[2021-04-04 12:03] VITALS: BP 132/67; PULSE 60; RESP 18
== END 2021-04-04 12:12 | disposition home or self-care (01) ==
LOC: OR 07:49
PROVIDERS: ATTEND Surgery
DX: K81.1 Chronic cholecystitis (principal); E07.9 Disorder of thyroid, unspecified; G89.4 Chronic pain syndrome; E03.9 Hypothyroidism, unspecified; D86.9 Sarcoidosis, unspecified; J43.9 Emphysema, unspecified; E16.2 Hypoglycemia, unspecified; Z79.899 Other long term (current) drug therapy; Z88.1 Allergy status to other antibiotic agents; Z91.040 Latex allergy status; I10 Essential (primary) hypertension; Z88.5 Allergy status to narcotic agent; K21.9 Gastro-esophageal reflux disease without esophagitis
CPT/HCPCS: 88304; 47562; J2250; J1100 ×2; J2710; J0690; J2405; J2001; J3010; J1885; J0330; J2704; J1644

== ENCOUNTER 2021-07-20 20:09 | Emergency (ER) | payer MEDICARE ==
--- NOTE | 2021-07-20 21:44 | XR ---
EXAMINATION TYPE: XR chest 2V DATE OF EXAM: 07/20/2021 COMPARISON: 03/18/2021 HISTORY: Shortness of breath TECHNIQUE: Frontal and lateral views of the chest are obtained. FINDINGS: Scattered senescent parenchymal changes noted. Hyperinflation compatible with COPD. No evidence for infiltrate. No evidence for atelectasis. Heart size is stable. Mediastinal structures are stable and grossly unremarkable. No evidence for hilar prominence. Degenerative changes dorsal spine. IMPRESSION: 1. No evidence for acute pulmonary disease.
[2021-07-20 22:40] LABS: Basophils # (A) 0.1 k/uL (0-0.2); Basophils % (A) 1 %; Eosinophils # (A) 0.2 k/uL (0-0.7); Eosinophils % (A) 2 %; HCT 47.9 % (34.0-46.0); HGB 16.1 gm/dL (11.4-16.0); Lymphocytes # (A) 2.1 k/uL (1.0-4.8); Lymphocytes % (A) 24 %; MCH 31.3 pg (25.0-35.0); MCHC 33.6 g/dL (31.0-37.0); MCV 93.3 fL (80.0-100.0); Mean Platelet Volume 7.7; Monocytes # (A) 0.4 k/uL (0-1.0); Monocytes % (A) 5 %; Neutrophils # (A) 5.9 k/uL (1.3-7.7); Neutrophils % (A) 67 %; Platelet Count 261 k/uL (150-450); RBC 5.13 m/uL (3.80-5.40); RDW 11.9 % (11.5-15.5); WBC 8.8 k/uL (3.8-10.6)
[2021-07-20 22:50] LABS: ALT 59 U/L (4-34); AST 37 U/L (14-36); African American GFR (CKD) >90 (>60 ml/min/1.73 sqM); Albumin 4.9 g/dL (3.5-5.0); Alkaline Phosphatase 97 U/L (38-126); Anion Gap 10 mmol/L; Blood Urea Nitrogen 26 mg/dL (7-17); Calcium 10.9 mg/dL (8.4-10.2); Carbon Dioxide 27 mmol/L (22-30); Chloride 99 mmol/L (98-107); Glucose 113 mg/dL (74-99); Non-African American GFR(CKD) 80 (>60 ml/min/1.73 sqM); Potassium 3.9 mmol/L (3.5-5.1); Sodium 136 mmol/L (137-145); Total Bilirubin 0.3 mg/dL (0.2-1.3); Total Protein 8.1 g/dL (6.3-8.2)
[2021-07-20 23:02] LABS: INR 0.9 (<1.2); Partial Thromboplastin Time 23.9 sec (22.0-30.0); Prothrombin Time 9.8 sec (9.0-12.0)
--- NOTE | 2021-07-20 23:07 | ED ---
General Adult HPI - General Chief complaint: Chest Pain Stated complaint: Chest Pains-Reaction to medication Time Seen by Provider: 07/20/21 21:01 Source: patient Mode of arrival: ambulatory Limitations: no limitations - History of Present Illness Initial comments: Patient is a 65-year-old female who presents to the ER today via private vehicle for evaluation of a possible med reaction versus chest pain. Patient reports that she is currently on nystatin for oral thrush which she believes is related to recent antibiotic use and frequent inhaler use for COPD. Patient has been taking oral nystatin for 3 days now, she states every time she's taking that she's had some flushing and GI upset as well as flashes of heat. Patient states that today she took it she had the symptoms were also felt some pressure in her epigastrium her lower chest. Patient was home alone and stated that she didn't really feel comfortable having no symptoms while home alone. She decided to come to the hospital and wait in the waiting room and if she got any worse she would check in but didn't think she needed to check in. When she told her daughter of this plan her daughter advised her that she had to check in so the patient decided to. However she then went back outside because she was feeling okay refused to have an EKG done in triage. She states that she has had reactions to medications with the symptoms in the past. - Related Data Home Medications Medication Instructions Recorded Confirmed Budesonide/Formoterol Fumarate 2 puff INHALATION RT-BID 05/10/20 07/20/21 [Symbicort 80-4.5 Mcg Inhaler] Metoprolol Succinate [Toprol XL] 25 mg PO DAILY 03/18/21 07/20/21 PARoxetine [Paxil] 5 mg PO DAILY 03/18/21 07/20/21 hydrOXYzine HCL [Atarax] 25 mg PO HS 03/18/21 07/20/21 tiZANidine HCL [Zanaflex] 4 mg PO BID PRN 03/18/21 07/20/21 traZODone HCL 50 mg PO HS 03/18/21 07/20/21 Levothyroxine Sodium [Synthroid] 50 mcg PO DAILY 07/20/21 07/20/21 Nystatin 100,000 Unit/ml Susp 5 ml PO QID 10/22/21 10/22/21 [Mycostatin Oral Susp] Allergies Allergy/AdvReac Type Severity Reaction Status Date / Time Latex, Natural Rubber Allergy Unknown Verified 07/20/21 23:22 ciprofloxacin [From Cipro] AdvReac Nausea & Verified 07/20/21 23:22 Vomiting morphine AdvReac Hallucinati Verified 07/20/21 23:22 ons Review of Systems ROS Statement: Those systems with pertinent positive or pertinent negative responses have been documented in the HPI. ROS Other: All systems not noted in ROS Statement are negative. Past Medical History Past Medical History: COPD, Osteoarthritis (OA), Thyroid Disorder Additional Past Medical History / Comment(s): Sarcoidosis, chronic pain syndrome, arthritis, hypothyroidism, osteoporosis, diet-controlled hypoglycemia and emphysema. PAST GENERAL INTERN HISTORY: She has no history of STDs. Lichen sclerosis o f the vulva diagnosed with biopsy. Cervical cone biopsy in her 40s. History of Any Multi-Drug Resistant Organisms: None Reported Past Surgical History: Breast Surgery, Orthopedic Surgery Additional Past Surgical History / Comment(s): Laminectomy, spinal fusion surgery, breast biopsy, conization of the cervix, and colonoscopy(2012) Past Anesthesia/Blood Transfusion Reactions: No Reported Reaction Past Psychological History: No Psychological Hx Reported Smoking Status: Never smoker Past Alcohol Use History: None Reported Past Drug Use History: None Reported - Past Family History Father Family Medical History: Myocardial Infarction ([place]) Mother Family Medical History: Hypertension Additional Family Medical History / Comment(s): Maternal uncle had bladder cancer, another maternal uncle had prostate cancer, and a maternal aunt had breast cancer. General Exam - General Exam Comments Initial Comments: Physical Exam GENERAL: Patient is well-developed and well-nourished. Patient is nontoxic and well-hydrated and is in no distress. HENT: Normocephalic, Atraumatic. EYES: PERRL, EOMI PULMONARY: Unlabored respirations. No audible rales rhonchi or wheezing was noted. CARDIOVASCULAR: There is a regular rate and rhythm without any murmurs gallops or rubs. ABDOMEN: Soft and nontender with normal bowel sounds. SKIN: Skin is clear with no lesions or rashes and otherwise unremarkable. : Deferred NEUROLOGIC: Patient is alert and oriented x3. Moving all extremities spontaneously MUSCULOSKELETAL: Normal extremities with adequate strength and full range of motion. No lower extremity swelling or edema. No calf tenderness. PSYCHIATRIC: Very anxious appearing, speaking very quickly running her hand through her hair Limitations: no limitations Course Vital Signs 07/20/21 07/20/21 20:26 22:10 Temperature 97.6 F Pulse Rate 85 70 Respiratory 18 18 Rate Blood Pressure 164/85 157/94 O2 Sat by Pulse 93 L 95 Oximetry EKG Findings - EKG Comments: EKG Findings:: EKG was obtained due to complaint of chest pain, EKG was obtained at 2115, rate is 65 rhythm is sinus there is normal axis are normal intervals are no acute ST elevations or depressions no evidence of acute ischemia or infarction. Medical Decision Making - Medical Decision Making The patient was seen and evaluated, history is obtained from patient, history and physical exam are relatively unremarkable. Patient has no cardiac history but does have a history of multiple reactions to medications. She did feel flus maile and her first 5 doses of taking this medication and today felt more strongly with pressure in her epigastrium. Symptoms have improved significantly since arrival in the ER however given patient's age and complaint of epigastric/chest pain we will obtain EKG and labs. EKG and chest x-ray were obtained, patient initially refused lab stating that she feels like if her EKG and chest x-ray are okay she should need blood work however discussed with the patient that we cannot rule out NSTEMI without blood work. Patient agreeable to butterfly access. Patient's labs had mild transaminitis, mildly elevated calcium, troponin negative. Results were discussed with the patient, patient states she'll follow with her primary care for further management of thrush she will discontinue nystatin and discuss possible oral antifungal for persistent thrush. - Lab Data Result diagrams: 07/20/21 22:29 07/20/21 22:29 Lab Results 07/20/21 07/20/21 07/20/21 Range/Units 22:29 22:29 22:29 WBC 8.8 (3.8-10.6) k/uL RBC 5.13 (3.80-5.40) m/uL Hgb 16.1 H (11.4-16.0) gm/dL Hct 47.9 H (34.0-46.0) % MCV 93.3 (80.0-100.0) fL MCH 31.3 (25.0-35.0) pg MCHC 33.6 (31.0-37.0) g/dL RDW 11.9 (11.5-15.5) % Plt Count 261 (150-450) k/uL MPV 7.7 Neutrophils % 67 % Lymphocytes % 24 % Monocytes % 5 % Eosinophils % 2 % Basophils % 1 % Neutrophils # 5.9 (1.3-7.7) k/uL Lymphocytes # 2.1 (1.0-4.8) k/uL Monocytes # 0.4 (0-1.0) k/uL Eosinophils # 0.2 (0-0.7) k/uL Basophils # 0.1 (0-0.2) k/uL PT 9.8 (9.0-12.0) sec INR 0.9 (<1.2) APTT 23.9 (22.0-30.0) sec Sodium 136 L (137-145) mmol/L Potassium 3.9 (3.5-5.1) mmol/L Chloride 99 (98-107) mmol/L Carbon Dioxide 27 (22-30) mmol/L Anion Gap 10 mmol/L BUN 26 H (7-17) mg/dL Creatinine 0.78 (0.52-1.04) mg/dL Est GFR (CKD-EPI)AfAm >90 (>60 ml/min/1.73 sqM) Est GFR (CKD-EPI)NonAf 80 (>60 ml/min/1.73 sqM) Glucose 113 H (74-99) mg/dL Calcium 10.9 H (8.4-10.2) mg/dL Magnesium 2.0 (1.6-2.3) mg/dL Total Bilirubin 0.3 (0.2-1.3) mg/dL AST 37 H (14-36) U/L ALT 59 H (4-34) U/L Alkaline Phosphatase 97 (38-126) U/L Troponin I (0.000-0.034) ng/mL NT-Pro-B Natriuret Pep pg/mL Total Protein 8.1 (6.3-8.2) g/dL Albumin 4.9 (3.5-5.0) g/dL 07/20/21 07/20/21 Range/Units 22:29 22:29 WBC (3.8-10.6) k/uL RBC (3.80-5.40) m/uL Hgb (11.4-16.0) gm/dL Hct (34.0-46.0) % MCV (80.0-100.0) fL MCH (25.0-35.0) pg MCHC (31.0-37.0) g/dL RDW (11.5-15.5) % Plt Count (150-450) k/uL MPV Neutrophils % % Lymphocytes % % Monocytes % % Eosinophils % % Basophils % % Neutrophils # (1.3-7.7) k/uL Lymphocytes # (1.0-4.8) k/uL Monocytes # (0-1.0) k/uL Eosinophils # (0-0.7) k/uL Basophils # (0-0.2) k/uL PT (9.0-12.0) sec INR (<1.2) APTT (22.0-30.0) sec Sodium (137-145) mmol/L Potassium (3.5-5.1) mmol/L Chloride (98-107) mmol/L Carbon Dioxide (22-30) mmol/L Anion Gap mmol/L BUN (7-17) mg/dL Creatinine (0.52-1.04) mg/dL Est GFR (CKD-EPI)AfAm (>60 ml/min/1.73 sqM) Est GFR (CKD-EPI)NonAf (>60 ml/min/1.73 sqM) Glucose (74-99) mg/dL Calcium (8.4-10.2) mg/dL Magnesium (1.6-2.3) mg/dL Total Bilirubin (0.2-1.3) mg/dL AST (14-36) U/L ALT (4-34) U/L Alkaline Phosphatase (38-126) U/L Troponin I <0.012 (0.000-0.034) ng/mL NT-Pro-B Natriuret Pep 76 pg/mL Total Protein (6.3-8.2) g/dL Albumin (3.5-5.0) g/dL Disposition Clinical Impression: Atypical chest pain, Medication reaction Disposition: HOME SELF-CARE Condition: Stable Instructions (If sedation given, give patient instructions): Chest Pain (ED), General Allergic Reaction (ED) Is patient prescribed a controlled substance at d/c from ED?: No Referrals: Kael Alvarez MD [Primary Care Provider] - 1-2 days
[2021-07-21 00:20] VITALS: BP 150/84; PULSE 76; RESP 16; TEMP 97.5
== END 2021-07-21 00:15 | disposition home or self-care (01) ==
LOC: EC 20:09
DX: R07.89 Other chest pain (principal); T50.905A Adverse effect of unspecified drugs, medicaments and biological substances, initial encounter; J44.9 Chronic obstructive pulmonary disease, unspecified; M19.90 Unspecified osteoarthritis, unspecified site; E07.9 Disorder of thyroid, unspecified; Z88.1 Allergy status to other antibiotic agents; Z88.5 Allergy status to narcotic agent; Z91.040 Latex allergy status; Z79.899 Other long term (current) drug therapy
CPT/HCPCS: 36415; 71046; 80053; 83735; 83880; 84484; 85025; 85610; 85730; 93005; 99285

== ENCOUNTER → 2021-11-27 | Outpatient (CLI) | payer MEDICARE ==
[2021-11-27 14:22] VITALS: BP 131/78; PULSE 69; RESP 16; TEMP 98.2
--- NOTE | 2021-11-27 15:09 | P.HPOB ---
History of Present Illness H&P Date: 11/27/21 Chief Complaint: The patient is here for her routine gynecologic exam. This is a 66-year-old with an LMP of 2007. The patient states she has done well with her lichen sclerosus of the vulva. She occasionally uses Neosporin on this as needed. She had slight stinging last month, but otherwise has been doing well. She previously used Temovate which she did not feel was helpful. She denies any post menopausal bleeding. Review of Systems The patient has lost 20 pounds over the last year and a half. She denies respiratory or cardiac problems. GI: Occasional irritable bowel symptoms. Past Medical History Past Medical History: COPD, Osteoarthritis (OA), Thyroid Disorder Additional Past Medical History / Comment(s): Sarcoidosis, chronic pain syndrome, arthritis, hypothyroidism, osteoporosis, diet-controlled hypoglycemia and emphysema. PAST SENIOR DIRECTOR OF STRATEGY HISTORY: She has no history of STDs. Lichen sclerosis of the vulva diagnosed with biopsy. Cervical cone biopsy in her 40s. History of Any Multi-Drug Resistant Organisms: None Reported Past Surgical History: Breast Surgery, Orthopedic Surgery Additional Past Surgical History / Comment(s): Laminectomy, spinal fusion surgery, breast biopsy, conization of the cervix, and colonoscopy(2012) Past Anesthesia/Blood Transfusion Reactions: No Reported Reaction Past Psychological History: No Psychological Hx Reported Smoking Status: Never smoker Past Alcohol Use History: None Reported Past Drug Use History: None Reported Additional History: She has been since 1972 and is disabled. - Past Family History Father Family Medical History: Myocardial Infarction ([place]) Mother Family Medical History: Hypertension Additional Family Medical History / Comment(s): Maternal uncle had bladder cancer, another maternal uncle had prostate cancer, and a maternal aunt had breast cancer. Medications and Allergies Home Medications Medication Instructions Recorded Confirmed Type Budesonide/Formoterol Fumarate 2 puff INHALATION RT-BID 05/10/20 11/27/21 History [Symbicort 80-4.5 Mcg Inhaler] Metoprolol Succinate [Toprol XL] 25 mg PO DAILY 03/18/21 11/27/21 History PARoxetine [Paxil] 5 mg PO DAILY 03/18/21 11/27/21 History hydrOXYzine HCL [Atarax] 25 mg PO HS 03/18/21 11/27/21 History tiZANidine HCL [Zanaflex] 4 mg PO BID PRN 03/18/21 11/27/21 History traZODone HCL 50 mg PO HS 03/18/21 11/27/21 History Levothyroxine Sodium [Synthroid] 50 mcg PO DAILY 07/20/21 11/27/21 History Allergies Allergy/AdvReac Type Severity Reaction Status Date / Time Latex, Natural Rubber Allergy Unknown Verified 11/27/21 14:12 ciprofloxacin [From Cipro] AdvReac Nausea & Verified 11/27/21 14:12 Vomiting morphine AdvReac Hallucinati Verified 11/27/21 14:12 ons Exam Vital Signs Temp Pulse Resp BP Pulse Ox 11/27/21 14:18 98.2 F 69 16 131/78 94 L Intake and Output 11/27/21 11/27/21 11/27/21 06:59 14:59 22:59 Other: Weight 66.678 kg Height 5 feet 0.5 inches, weight 147 pounds, BMI 28.2. This is a well-developed well-nourished white female who is alert and oriented times 3 in no acute distress. HEENT: Within normal limits. NECK: Supple without mass or thyromegaly. CHEST AND LUNGS: Clear to auscultation. HEART: Regular rate and rhythm. BREASTS: Are without mass or discharge. AXILLARY EXAM: Negative for adenopathy. BACK: Negative for CVA tenderness. ABDOMEN: Soft, nontender, without palpable masses. PELVIC EXAM: External genitalia reveals moderate atrophy. The labia minora have pallor consistent with lichen sclerosus. The perineum also has mild pallor consistent with lichen sclerosus. Cervix and vagina appear normal with mild to moderate atrophy. There is no unusual discharge. There is no evidence of prolapse. The uterus is midposition, nongravid size and nontender. There are no palpable adnexal masses or tenderness. RECTAL EXAM:rectovaginal exam is negative for mass or tenderness and is negative for occult blood. EXTREMITIES: Nontender. IMPRESSION: 1. 66-year-old menopausal female with stable lichen sclerosus of the vulva. 2. History of osteoporosis. The patient is refusing treatment or testing. PLAN: 1. Pap smear was deferred since she had a normal one on 05/10/2020. We will consider discontinuing Pap smears after next year. 2. Self breast awareness was discussed with the patient. We have also discussed symptoms associated with inflammatory breast cancer. Screening mammogram will be due next month and the order slip was given to the patient for this. 3. She states she has done well without steroid creams for the lichen sclerosus of the vulva. However, since she had some stinging irritation last month, she would like a medium dose steroid cream. Kenalog 0.1% twice a day when necessary will will be prescribed and the electronic prescription will be sent to my her pharmacy in [place]. 4. Osteoporosis management was discussed. I have stressed the importance of adequate calcium, vitamin D and regular exercise. Recommended amounts of calcium and vitamin D were also discussed. She is declining any medication for this and is also declining any further testing at this time. 5. She has received her Covid vaccination series, but did not have a booster because of some side effects that she had with the vaccination. 6. She will see when her last colonoscopy was done as she believes it was within the last 5 years. She will check with her primary care physician on this. 7. She was advised to return in one year for her annual well woman exam.
== END ==
LOC: WWCWWP 14:01
PROVIDERS: ATTEND Obstetrics & Gynecology
DX: L90.0 Lichen sclerosus et atrophicus (principal); M19.90 Unspecified osteoarthritis, unspecified site; E03.9 Hypothyroidism, unspecified; J43.9 Emphysema, unspecified; Z87.39 Personal history of other diseases of the musculoskeletal system and connective tissue; Z79.51 Long term (current) use of inhaled steroids; Z79.890 Hormone replacement therapy; Z88.5 Allergy status to narcotic agent; Z88.1 Allergy status to other antibiotic agents; Z91.040 Latex allergy status

== ENCOUNTER → 2022-02-26 | Outpatient (CLI) | payer MEDICARE ==
[2022-02-26 10:19] VITALS: BP 126/87; PULSE 78; RESP 17; TEMP 97.9
--- NOTE | 2022-02-26 12:39 | P.PN ---
Progress Note - Text Progress Note Date: 02/26/22 Chief Complaint: A bulge noticed at the vaginal opening. HPI: This is a 66-year-old with an LMP of 2007. The patient was recently seen for her well woman examination on 11/27/2021. About 1-2 weeks ago she started noticing some bladder pressure, low backache, nausea and slight dysuria with urinary frequency and urgency. More recently the symptoms have decreased. Last week she had a urinalysis done through her PCP and was told that it was okay. She does not believe a urine culture was performed. She has also noticed a slight bulge noted at the vaginal opening when she examines herself with a mirror. She is unsure what she is looking at and wonders if it is normal. She is unsure if the bulge is related to her history of lichen sclerosus. ROS: Review of systems is unremarkable other than the symptoms as noted in the HPI. PE: Blood pressure: 126/87, Height: 5 foot 1 inch, Weight: 155 pounds, Temperature: 97.9, Pulse: 78. Pulse oximeter 95%. This is a well developed, well nourished, white female who is alert and orientedx3, in no acute distress. External genitalia: Mild to moderate atrophy with mild generalized pallor, greatest in the labia minora, consistent with lichen sclerosus of the vulva. Upon spreading the labia, no significant bulge is noted, however, with Valsalva, a small cystocele is noted. The vaginal mucosa overlying the cystocele is not hypertrophic and there is no excoriation or bleeding. Bimanual examination confirms a small cystocele with Valsalva. There is no significant rectocele or uterine prolapse noted. Impression: 1. 66-year-old menopausal female with grade 2 cystocele which can expand to approximate grade 2-3 with Valsalva. 2. Urinary symptoms consisting of urinary frequency and urgency and dysuria. Plan: 1. Urine has been obtained for a urinalysis with culture and sensitivity. This is a mid stream clean catch specimen. 2. We have had a long discussion regarding the small cystocele. Since she really is having minimal symptoms, I have recommended conservative management. I have stressed the importance of voiding when she feels the need to go and not to hold urine longer than necessary. I have also recommended that she try to empty the bladder as completely as possible by giving herself more time and with relaxation. We have also recommended that she avoid heavy repetitive lifting and bearing down, if possible. Negative Valsalva exercises were discussed and recommended that she do this on a regular basis especially when she notices this the slight bulge and prior to voiding. 3. Information on pelvic prolapse and cystocele was given to the patient. All questions were answered. 4. She will return in November 2022 or sooner if problems. Time spent with the patient:30 minutes
== END ==
LOC: WWCWWP 09:59
PROVIDERS: ATTEND Obstetrics & Gynecology
DX: N81.10 Cystocele, unspecified (principal); Z91.040 Latex allergy status; Z88.1 Allergy status to other antibiotic agents; Z88.5 Allergy status to narcotic agent

== ENCOUNTER → 2022-03-04 | Outpatient (CLI) | payer MEDICARE ==
--- NOTE | 2022-03-05 19:48 | MM ---
Reason for Exam: Screening (asymptomatic). Last mammogram was performed 1 year(s) and 2 month(s) ago. Patient History: Menarche at age 13. First Full-Term at age 19. Postmenopausal. 08/16/2005, Core Biopsy on the Right side. Maternal aunt had breast cancer, age 88. Risk Values: Mechelle 5 year model risk: 1.6%. NCI Lifetime model risk: 5.6%. Prior Study Comparison: 01/21/2017 Bilateral Screening Mammogram, [facility]. 01/29/2019 Bilateral Screening Mammogram, [facility]. 01/02/2021 Bilateral Screening Mammogram, [facility]. Tissue Density: There are scattered fibroglandular densities. Findings: Analyzed By CAD. No significant change from prior exams. Overall Assessment: Negative, BI-RAD 1 Management: Screening Mammogram of both breasts in 1 year. A clinical breast exam by your physician is recommended on an annual basis and results should be correlated with mammographic findings. Also, the patient should continue monthly self breast exams. Electronically signed and approved by: Dmitriy Rebolledo M.D. Radiologist
== END | disposition home or self-care (01) ==
LOC: RADMAMWWP 13:42
PROVIDERS: ATTEND Obstetrics & Gynecology
DX: Z12.31 Encounter for screening mammogram for malignant neoplasm of breast (principal); Z78.0 Asymptomatic menopausal state; Z80.3 Family history of malignant neoplasm of breast
CPT/HCPCS: 77063; 77067

== ENCOUNTER → 2022-08-05 | Outpatient (CLI) | payer MEDICARE ==
--- NOTE | 2022-08-05 11:35 | US ---
EXAMINATION TYPE: US pelvic complete DATE OF EXAM: 08/05/2022 COMPARISON: NONE CLINICAL HISTORY: R10.2 PELVIC AND PERINEAL PAIN, N94.89 FEMALE BASILIO. Pelvic discomfort TECHNIQUE: . Transabdominal sonographic images of the pelvis were acquired. Transvaginal sonographi c images were medically necessary to better assess the following anatomy: endometrium and ovaries Date of LMP: 2007 EXAM MEASUREMENTS: Uterus: 7.0 x 3.8 x 3.1 cm Endometrial Stripe: 0.5 cm Right Ovary: not seen Left Ovary: not seen 1. Uterus: anteverted, heterogeneous 2. Endometrium: appears wnl 3. Right Ovary: not seen 4. Left Ovary: not seen 5. Bilateral Adnexa: wnl 6. Posterior cul-de-sac: wnl IMPRESSION: 1. No acute pelvic process. 2. Heterogenous appearance of the uterus which may relate to fibroid changes versus adenomyosis. 3. Nonvisualization of both ovaries.
== END | disposition home or self-care (01) ==
LOC: RADUSWWP 10:42
PROVIDERS: ATTEND Obstetrics & Gynecology
DX: N81.11 Cystocele, midline (principal); N94.89 Other specified conditions associated with female genital organs and menstrual cycle
CPT/HCPCS: 76830; 76856

== ENCOUNTER → 2023-08-05 | Outpatient (CLI) | payer MEDICARE ==
[2023-08-05 10:16] VITALS: BP 127/81; PULSE 88; RESP 17; TEMP 97.9
--- NOTE | 2023-08-05 11:05 | P.HPOB ---
History of Present Illness H&P Date: 08/05/23 Chief Complaint: The patient is here for her routine gynecologic exam. This is a 67-year-old with an LMP of 2007. The patient has a known cystocele. She states she does notice something approaching the vaginal opening. She states she saw a uro-appointment scheduler, Dr. Taylor, and he thought there was uterine prolapse as well. He discussed options including pessary use, observation, and surgery. He offered surgery which would include hysterectomy, removal of the tubes and ovaries, uterosacral ligament suspension, and possible sling procedure. She has chosen to proceed with conservative management at this time. She is complaining of some vaginal odor which she mostly notices at night. She denies any significant discharge. She occasionally does notice some dampness after voiding and states this is the extent of her urinary leakage. She does void fairly frequently without urgency or dysuria. Review of Systems The patient has gained 18 pounds over the last year. She denies respiratory or cardiac problems. GI: Occasional IBS symptoms. : As in the HPI. Past Medical History Past Medical History: COPD, Osteoarthritis (OA), Thyroid Disorder Additional Past Medical History / Comment(s): Sarcoidosis, chronic pain syndrome, arthritis, hypothyroidism, osteoporosis, diet-controlled hypoglycemia and emphysema. PAST HISTORICAL SITE GUIDE HISTORY: She has no history of STDs. Lichen sclerosis of the vulva diagnosed with biopsy. Cervical cone biopsy in her 40s. History of Any Multi-Drug Resistant Organisms: None Reported Past Surgical History: Breast Surgery, Cholecystectomy, Orthopedic Surgery Additional Past Surgical History / Comment(s): Laminectomy, spinal fusion surgery, breast biopsy, conization of the cervix, and colonoscopy(2012) Past Anesthesia/Blood Transfusion Reactions: No Reported Reaction Past Psychological History: No Psychological Hx Reported Smoking Status: Never smoker Past Alcohol Use History: None Reported Past Drug Use History: None Reported Additional History: She has been since 1972 and is disabled. She is not sexually active. - Past Family History Father Family Medical History: Myocardial Infarction ([place]) Mother Family Medical History: Hypertension Additional Family Medical History / Comment(s): Maternal uncle had bladder cancer, another maternal uncle had prostate cancer, and a maternal aunt had breast cancer. Medications and Allergies Home Medications Medication Instructions Recorded Confirmed Type Budesonide/Formoterol Fumarate 2 puff INHALATION RT-BID 05/10/20 08/05/23 History [Symbicort 80-4.5 Mcg Inhaler] Metoprolol Succinate [Toprol XL] 25 mg PO DAILY 03/18/21 08/05/23 History PARoxetine [Paxil] 5 mg PO DAILY 03/18/21 08/05/23 History hydrOXYzine HCL [Atarax] 25 mg PO HS 03/18/21 08/05/23 History tiZANidine HCL [Zanaflex] 4 mg PO BID PRN 03/18/21 08/05/23 History traZODone HCL 50 mg PO HS 03/18/21 08/05/23 History Levothyroxine Sodium [Synthroid] 50 mcg PO DAILY 07/20/21 08/05/23 History Triamcinolone 0.1% Cream [Kenalog 1 applicatio TOPICAL BID PRN #30 gm 11/27/21 08/05/23 Rx 0.1% Cream] Allergies Allergy/AdvReac Type Severity Reaction Status Date / Time Latex, Natural Rubber Allergy Unknown Verified 08/05/23 10:03 ciprofloxacin [From Cipro] AdvReac Nausea & Verified 08/05/23 10:03 Vomiting morphine AdvReac Hallucinati Verified 08/05/23 10:03 ons Exam Vital Signs Temp Pulse Resp BP Pulse Ox 08/05/23 10:04 97.9 F 88 17 127/81 96 Intake and Output 08/04/23 08/05/23 08/05/23 22:59 06:59 14:59 Other: Weight 74.843 kg Height 5 foot 1 inch, weight 165 pounds, BMI 31.2. This is a well-developed well-nourished white female who is alert and oriented times 3 in no acute distress. HEENT: Within normal limits. NECK: Supple without mass or thyromegaly. CHEST AND LUNGS: Clear to auscultation. HEART: Regular rate and rhythm. BREASTS: Are without mass or discharge. AXILLARY EXAM: Negative for adenopathy. BACK: Negative for CVA tenderness. ABDOMEN: Soft, nontender, without palpable masses. PELVIC EXAM: External genitalia reveals mild pallor of the labia minora without ulceration or excoriation. Cervix and vagina appear normal with mild atrophy and mild uterine prolapse. There is no unusual discharge or vaginal odor. There is a stable grade 2 cystocele which approaches the introitus with Valsalva. There is a grade 2 uterine prolapse. There is no significant rectocele. The uterus is midposition, nongravid size and nontender. There are no palpable adnexal masses or tenderness. RECTAL EXAM: Rectovaginal exam is negative for mass or tenderness and is negative for occult blood. EXTREMITIES: Nontender. IMPRESSION: 1. 67-year-old menopausal female with stable lichen sclerosus of the vulva which is minimally symptomatic. She states she infrequently uses the Kenalog cream. 2. Stable grade 2-3 cystocele with mild uterine prolapse, grade 2. This is all mildly symptomatic. 3. Vaginal odor without significant vaginal discharge. Differential diagnosis will include bacterial vaginosis or odor from mild urinary incontinence. 4. History of osteoporosis. The patient has refused treatment and testing in the past. PLAN: 1. Pap smear was performed. We will continue cervical screening because of her history of cold knife conization of the cervix. She will try to find the date of that conization. We will consider a discontinuing Pap smears and it has been greater than 25 years since the conization. 2. Self breast awareness was discussed with the patient. We have also discussed symptoms associated with inflammatory breast cancer. 3. Screening mammogram is due and the order slip was given to the patient for this. 4. Affirm vaginitis panel was obtained from the vagina. 5. We will obtain urine for a urinalysis and culture with sensitivities. 6. We have had a long discussion regarding her cystocele and uterine prolapse. We again have discussed options including observation, pessary use and surgery. We will continue observation at this time. She can see the uro-appointment scheduler that she has seen and if she wants a second opinion I can refer her to a different uro-appointment scheduler. 7. She was advised to return in one year for her annual well woman exam and as needed. 8.PHQ-2 questionaire was given and she scores 0. This is a negative screen for depression.
== END ==
LOC: WWCWWP 09:58
PROVIDERS: ATTEND Obstetrics & Gynecology
DX: N90.4 Leukoplakia of vulva (principal); M81.0 Age-related osteoporosis without current pathological fracture; N81.4 Uterovaginal prolapse, unspecified; N89.8 Other specified noninflammatory disorders of vagina; M19.90 Unspecified osteoarthritis, unspecified site; E03.9 Hypothyroidism, unspecified; J43.9 Emphysema, unspecified; D86.9 Sarcoidosis, unspecified; G89.4 Chronic pain syndrome; Z80.3 Family history of malignant neoplasm of breast; Z79.890 Hormone replacement therapy; Z91.040 Latex allergy status; Z88.5 Allergy status to narcotic agent; Z88.1 Allergy status to other antibiotic agents; Z78.0 Asymptomatic menopausal state

== ENCOUNTER → 2023-08-15 | Outpatient (CLI) | payer MEDICARE ==
--- NOTE | 2023-08-18 08:48 | MM ---
Reason for Exam: Screening (asymptomatic). Last mammogram was performed 1 year(s) and 5 month(s) ago. Patient History: Menarche at age 13. First Full-Term at age 19. Postmenopausal. 08/16/2005, Core Biopsy on the Right side. Maternal aunt had breast cancer, age 88. Risk Values: Mechelle 5 year model risk: 1.6%. NCI Lifetime model risk: 5.4%. Prior Study Comparison: 01/29/2019 Bilateral Screening Mammogram, [facility]. 01/02/2021 Bilateral Screening Mammogram, [facility]. 03/04/2022 Bilateral MG 3D screening mammo w/cad, [facility]. Tissue Density: The breast tissue is almost entirely fat. Findings: Analyzed By CAD. There is no suspicious group of microcalcifications or new suspicious mass in either breast. Overall Assessment: Negative, BI-RAD 1 Management: Screening Mammogram of both breasts in 1 year. . Patient should continue monthly self-breast exams. A clinical breast exam by your physician is recommended on an annual basis. This exam should not preclude additional follow-up of suspicious palpable abnormalities. Note on Mechelle scores and lifetime risk: 1. A Mechelle score greater than 3% is considered moderate risk. If this is the case, consider specialist referral to assess eligibility for a risk reducing agent. 2. If overall lifetime risk for the development of breast cancer is 20% or higher, the patient may qualify for future screening with alternating mammogram and breast MRI. Electronically signed and approved by: Jimbo Mcfarland M.D. Radiologis
== END | disposition home or self-care (01) ==
LOC: RADMAMWWP 11:34
PROVIDERS: ATTEND Obstetrics & Gynecology
DX: Z12.31 Encounter for screening mammogram for malignant neoplasm of breast (principal); Z78.0 Asymptomatic menopausal state; Z80.3 Family history of malignant neoplasm of breast
CPT/HCPCS: 77063; 77067

== ENCOUNTER → 2024-04-07 | Outpatient (CLI) | payer MEDICARE ==
--- NOTE | 2024-04-13 23:36 | MR ---
EXAMINATION TYPE: MR knee RT wo con DATE OF EXAM: 04/07/2024 COMPARISON: Outside right knee x-ray March 30, 2024 HISTORY: Right knee pain for 6 weeks due to stepping down wrong and twisting leg. TECHNIQUE: Multiplanar, multisequence images of the knee is performed without IV contrast. FINDINGS: MEDIAL MENISCUS: Triangular shaped increased signal posterior horn does not definitively extend to a rticular surface. LATERAL MENISCUS: Anterior and posterior horns are intact without tear. CRUCIATE LIGAMENTS: The anterior and posterior cruciate ligaments are intact and unremarkable. COLLATERAL LIGAMENTS: The medial collateral ligament and lateral collateral ligament complex are inta ct and unremarkable. EXTENSOR MECHANISM: Increased signal proximal patellar tendon and to lesser degree distal quadriceps tendon. EFFUSION: No significant suprapatellar joint effusion. POPLITEAL CYST: No popliteal/ha cyst. TRICOMPARTMENT SPACES: Mild to moderate narrowing patellofemoral compartment. No significant spurring . CARTILAGE: Tricompartmental articular cartilage is preserved. BONE MARROW SIGNAL: No focal abnormal marrow signal is appreciated. OTHER: No additional significant abnormality is appreciated. IMPRESSION: 1. At least intrasubstance tear posterior horn medial meniscus, no full-thickness meniscal tear. 2. Tendinosis/partial tearing of the proximal patellar tendon. Less prominent tendinosis of the dista l quadriceps tendon. 3. Mild tricompartment degenerative changes are present as detailed above.
== END | disposition home or self-care (01) ==
LOC: RADMRIMAIN 20:30
PROVIDERS: ATTEND Orthopaedic Surgery
DX: M17.11 Unilateral primary osteoarthritis, right knee (principal); M23.321 Other meniscus derangements, posterior horn of medial meniscus, right knee; M67.863 Other specified disorders of tendon, right knee

== ENCOUNTER 2024-05-20 10:25 | Day surgery (SDC) | payer MEDICARE ==
[2024-05-20] MEDS ORDERED: DEXAMETHASONE SOD PHOSPHATE 4 MG/ML 1 ML VIAL ONE ×2 (11:34)
[2024-05-20] MEDS ORDERED: ONDANSETRON 4 MG/2 ML VIAL ONE ×2 (11:34)
[2024-05-20] MEDS ORDERED: HYDROCORTISONE SUCCINATE 100 MG/2 ML VIAL ONE ×2 (11:34)
[2024-05-20] MEDS ORDERED: SODIUM CHLORIDE 0.9% 50 ML BAG ONE (12:05)
[2024-05-20] MEDS ORDERED: fentaNYL (PF) 50 MCG/ML 2 ML AMP ONE (12:05)
[2024-05-20] MEDS ORDERED: PROPOFOL 10 MG/ML 20 ML VIAL IV ONE (12:05)
[2024-05-20] MEDS ORDERED: LIDOCAINE 1% INJ 10MG/ML (20 ML MDV) ONE (12:05)
[2024-05-20] MEDS ORDERED: BUPIVACAINE (PF) 0.25% 30 ML VIAL ONE (12:05)
[2024-05-20] MEDS ORDERED: GLYCOPYRROLATE 0.2 MG/ML 2 ML VIAL ONE (12:05)
[2024-05-20] MEDS ORDERED: ceFAZolin 1,000 MG VIAL ONE (12:05)
[2024-05-20] MEDS ORDERED: LACTATED RINGERS 1,000 ML BAG ONE (12:05)
[2024-05-20] MEDS ORDERED: MIDAZOLAM 2 MG/2 ML VIAL ONE (12:05)
[2024-05-20] MEDS ORDERED: ACETAMINOPHEN TAB 500 MG TAB ONE ×2 (14:00)
[2024-05-20] MEDS ORDERED: ACETAMINOPHEN TAB 325 MG TAB ONE ×2 (14:15)
--- NOTE | 2024-05-21 15:57 | HP ---
HISTORY AND PHYSICAL SURGERY: 05/20/2024. HISTORY OF PRESENT ILLNESS: Janey Lee is a 68-year-old patient seen with progressive right knee pain. Options for treatment were discussed with her. She elects to proceed with right knee arthroscopy. Consent obtained. PAST MEDICAL HISTORY: Hypothyroidism, hypertension. PAST SURGICAL HISTORY: Spine surgery, cholecystectomy. DAILY MEDICATIONS: 1. Levothyroxine. 2. Metoprolol. 3. Zanaflex. ALLERGIES: Cipro and Keflex. SOCIAL HISTORY: She denies tobacco use. PHYSICAL EVALUATION OF THE RIGHT KNEE: Range of motion is -3/4 to 90 degrees. Mild effusion. Tenderness, medial joint line. Positive medial Erik's. Ligaments stable. Hip rotation without pain. Distal neurovascular exam intact. IMAGING: Right knee radiographs revealed moderate medial compartment osteoarthritis. MRI right knee revealed medial meniscal tear. Mild osteoarthritis. IMPRESSION: 1. Internal derangement of right knee with medial meniscal tear. 2. Hypertension. 3. Hypothyroidism. PLAN: Right knee arthroscopy with partial medial meniscectomy and debridement. MMODL / IJN: [id number] /
--- NOTE | 2024-05-21 15:58 | OP ---
OPERATIVE REPORT DATE OF SERVICE : 05/20/2024 Janey Lee is a patient seen with progressive right knee pain, status post right knee arthroscopy. Consent regarding the procedure was obtained. DICTATION ENDS HERE MMODL / IJN: [id number] /
--- NOTE | 2024-05-21 15:58 | OP ---
OPERATIVE REPORT DATE OF SERVICE : 05/20/2024 PREOPERATIVE DIAGNOSIS: Internal derangement, right knee. POSTOPERATIVE DIAGNOSES: 1. Medial and lateral meniscal tears, right knee. 2. Grade 4 chondromalacia, medial femoral condyle, right knee. 3. Reactive synovitis, medial, lateral, and suprapatellar compartments, right knee. PROCEDURES: 1. Arthroscopic partial medial and lateral meniscectomy, right knee. 2. Arthroscopic microfracture, medial femoral condyle, right knee. 3. Arthroscopic partial synovectomy, medial, lateral, and suprapatellar compartments, right knee. ANESTHESIA: General. COMPLICATIONS: None. ESTIMATED BLOOD LOSS: 8 mL. The patient tolerated the procedure well. INDICATIONS: Janey Lee is a patient seen with progressive right knee pain. We discussed options regarding treatment. She elected to proceed with right knee arthroscopy. Consent was obtained. DESCRIPTION OF PROCEDURE: The patient was taken to the operative suite. She underwent a general anesthetic by the department of anesthesia. The right lower extremity was placed in a well-padded arthroscopic leg silva, prepped and draped in normal sterile orthopedic fashion. She received preoperative IV antibiotics. A lateral joint line incision was made. Trocar and cannulas were inserted into the suprapatellar compartment. Arthroscopy was initiated. There was thick reactive synovitis throughout the suprapatellar compartment. The patellofemoral joint articulate incongruity with early grade 1 chondromalacia changes. The scope was guided into the medial gutter, no loose bodies. Scope was guided into medial compartment. Medial parapatellar incision made. Trocar inserted followed by a probe. There was a tear involving posterior horn of medial meniscus. There was a grade 2/3 chondromalacia changes throughout the medial femoral condyle, 1 area of grade 3/4. There was thick reactive synovitis anteriorly. I performed a partial medial meniscectomy, getting down a stable meniscal tissue. I performed a chondroplasty of the medial femoral condyle, getting down to stable osteochondral tissue. I performed a partial synovectomy decompressing the reactive synovitis. I did note an area of exposed bone along the medial femoral condyle measuring just about 1 cm. I introduced a microfracture awl. I performed a microfracture to that area, penetrating the bone with resultant bleeding at the microfracture site. The residual meniscus was probed and was found to be stable. The residual osteochondral surface was stable. There was good decompression of the synovitis. The scope and probe were now guided into the intercondylar notch. The ACL was identified and probed and found to be stable. The scope and probe were guided into the lateral compartment. There was a radial tear of the mid body of lateral meniscus, thick reactive synovitis anteriorly. No significant chondromalacia. I performed a partial lateral meniscectomy, getting down a stable meniscal tissue. I performed a partial synovectomy decompressing the reactive synovitis. The residual meniscus was probed and was stable. There was good decompression of the synovitis. I guided the scope into the lateral gutter, no loose bodies. I guided the scope back into the suprapatellar compartment. I introduced the motorized shaver and performed a partial synovectomy. The shaver was removed. There was good decompression of synovitis and I took 1 more look around the entire knee, no residual debris. Instruments were removed from the knee. The portal sites were approximated with Steri-Strips. The joint was infiltrated with 0.25% plain Marcaine. Sterile dressings were applied followed by TIA whaley. The patient was awakened, transferred to a bed, then Recovery in stable condition, having tolerated the procedure well. MMODL / IJN: [id number] /
== END 2024-05-20 15:45 ==
LOC: OR 10:25
PROVIDERS: ATTEND Orthopaedic Surgery
DX: S83.241A Other tear of medial meniscus, current injury, right knee, initial encounter (principal); S83.281A Other tear of lateral meniscus, current injury, right knee, initial encounter; M65.161 Other infective (teno)synovitis, right knee; M22.42 Chondromalacia patellae, left knee; I10 Essential (primary) hypertension; E03.9 Hypothyroidism, unspecified; J45.909 Unspecified asthma, uncomplicated; K21.9 Gastro-esophageal reflux disease without esophagitis; Z88.1 Allergy status to other antibiotic agents; F17.200 Nicotine dependence, unspecified, uncomplicated; Z88.0 Allergy status to penicillin; Z88.5 Allergy status to narcotic agent; Z88.8 Allergy status to other drugs, medicaments and biological substances; Z79.890 Hormone replacement therapy; Z90.49 Acquired absence of other specified parts of digestive tract; Z79.899 Other long term (current) drug therapy; X58.XXXA Exposure to other specified factors, initial encounter

== ENCOUNTER → 2024-09-15 | Outpatient (CLI) | payer MEDICARE ==
--- NOTE | 2024-09-16 08:22 | MM ---
Reason for Exam: Screening (asymptomatic). Last mammogram was performed 1 year(s) and 1 month(s) ago. Patient History: Menarche at age 13. First Full-Term at age 19. Postmenopausal. 08/16/2005, Core Biopsy on the Right side. Maternal aunt had breast cancer, age 88. Risk Values: Mechelle 5 year model risk: 1.7%. NCI Lifetime model risk: 5.1%. Prior Study Comparison: 01/02/2021 Bilateral Screening Mammogram, [facility]. 03/04/2022 Bilateral MG 3D screening mammo w/cad, [facility]. 08/15/2023 Bilateral MG 3D screening mammo w/cad, [facility]. Tissue Density: There are scattered areas of fibroglandular density. Findings: Analyzed By CAD. There is no suspicious group of microcalcifications or new suspicious mass in either breast. Overall Assessment: Negative, BI-RAD 1 Management: Screening Mammogram of both breasts in 1 year. . Patient should continue monthly self-breast exams. A clinical breast exam by your physician is recommended on an annual basis. This exam should not preclude additional follow-up of suspicious palpable abnormalities. Note on Mechelle scores and lifetime risk: 1. A Mechelle score greater than 3% is considered moderate risk. If this is the case, consider specialist referral to assess eligibility for a risk reducing agent. 2. If overall lifetime risk for the development of breast cancer is 20% or higher, the patient may qualify for future screening with alternating mammogram and breast MRI. [facility], , 09/16/2024 8:19 AM. Electronically signed and approved by: Jimbo Mcfarland M.D. Radiologis
== END | disposition home or self-care (01) ==
LOC: RADMAMWWP 13:01
PROVIDERS: ATTEND Family Medicine
DX: Z12.31 Encounter for screening mammogram for malignant neoplasm of breast (principal); Z80.3 Family history of malignant neoplasm of breast; Z78.0 Asymptomatic menopausal state; R92.323 Mammographic fibroglandular density, bilateral breasts
CPT/HCPCS: 77063; 77067